=== PATIENT | male | born 1940 | race Caucasian/White ===

== ENCOUNTER 2018-04-25 15:25 | Outpatient (CLI) | payer MEDICARE, BC ==
--- NOTE | 2018-04-25 16:27 | RAD ---
LUMBAR SPINE THREE VIEWS FLEXION AND EXTENSION: 04/25/18 HISTORY: Back pain. FINDINGS: Frontal view is not included for numbering. Lateral views include neutral, flexion and extension posi tioning. Five lumbar type vertebrae are presumed. Minimal end plate depression at the T12 inferior end plate. This appears to represent a chronic proc ess. Prominent osteophytosis. Disc space phenomenon at the lowest four levels. At the L2-3 level, there is 0.4 cm retrolisthesis. At the L3-4 level, there is disc space narrowing and 0.3 cm retrolisthesis. At the L4-5 level, there is mild disc space narrowing and 0.3 cm retrolisthesis. Little movement up o n flexion and extension without abnormal translational motion. IMPRESSION: Prominent degenerative changes of the lumbar spine. No acute osseous abnormalities are demonstrated. POS: [facility]
== END 2018-04-25 15:26 | disposition home or self-care (01) ==
LOC: TBSIIMAG 15:25
PROVIDERS: ATTEND Neurological Surgery
DX: M51.26 Other intervertebral disc displacement, lumbar region (principal); M48.062 Spinal stenosis, lumbar region with neurogenic claudication
CPT/HCPCS: 72100

== ENCOUNTER 2018-05-16 12:07 | Outpatient (CLI) | payer MEDICARE, BC ==
--- NOTE | 2018-05-16 14:59 | MRI ---
MRI OF THE LUMBAR SPINE WITHOUT CONTRAST: INDICATION: Low back pain and right-sided radicular symptoms. TECHNIQUE: Multiplanar, multisequence MR images were obtained of the lumbar spine without IV contrast. FINDINGS: There are Modic end plate degenerative changes seen at all lumbar intervertebral levels. Conus is seen to terminate at expected L1 level. There is slight dextroscoliosis of the lumbar spine. At L5-S1, there is a broad-based disk bulge with facet joint degenerative change inducing mild bilate ral neural foraminal narrowing. At L4-5, there is a broad-based disk-osteophyte complex with facet hypertrophy and ligamentum flavum hypertrophy inducing mild central canal narrowing with mild to moderate bilateral neural foraminal na rrowing. At L3-4, there is a broad-based disk-osteophyte complex with facet joint degenerative changes and lig amentum flavum hypertrophy inducing severe central canal narrowing with severe left and moderate righ t neural foraminal narrowing. At L2-3, there is a broad-based disk-osteophyte complex with facet joint degenerative change inducing moderate central canal narrowing with mild bilateral neural foraminal narrowing. At the L1-2 level, there is a broad-based bulge without appreciable central canal or neural foraminal narrowing. At T12-L1, there is an asymmetric disk-osteophyte complex but no appreciable central canal or neural foraminal narrowing. IMPRESSION: 1. Severe central canal narrowing at L3-4 with severe left neural foraminal narrowing. 2. Moderate central canal narrowing at L2-3 with mild bilateral neural foraminal narrowing. 3. Mild to moderate bilateral neural foraminal narrowing at L4-5. 4. Mild bilateral neural foraminal narrowing at L5-S1. POS: [facility]
== END 2018-05-16 12:08 | disposition home or self-care (01) ==
LOC: BICMRI 12:07
PROVIDERS: ATTEND Neurological Surgery
DX: M48.062 Spinal stenosis, lumbar region with neurogenic claudication (principal); M48.07 Spinal stenosis, lumbosacral region
CPT/HCPCS: 72148

== ENCOUNTER 2018-05-30 07:28 | Outpatient (CLI) | payer MEDICARE, BC ==
[2018-05-30 15:10] LABS: Hemoglobin 16.1 g/dL (14.0-18.0); Mean Corpuscular HGB CONC 32.8 g/dL (32.0-36.0); Mean Corpuscular Hemoglobin 30.7 pg (27.0-31.0); Mean Corpuscular Volume 93.7 fL (78.0-98.0); Mean Platelet Volume 8.5 fL (7.4-10.4); Platelet Count 238 thou/uL (130-400); RBC Distribution Width 11.9 % (11.5-14.5); Red Blood Cell (RBC) Count 5.24 mill/uL (4.70-6.10); White Blood Cell (WBC) Count 5.8 thou/uL (4.8-10.8)
[2018-05-30 15:16] LABS: PTT 29.8 SEC (22.9-36.1); Prothrombin Time 12.9 SEC (12.0-14.7)
== END 2018-05-30 07:29 | disposition home or self-care (01) ==
LOC: LABBT 07:28
PROVIDERS: ATTEND Neurological Surgery
DX: Z01.812 Encounter for preprocedural laboratory examination (principal); M48.061 Spinal stenosis, lumbar region without neurogenic claudication
CPT/HCPCS: 85027; 85610; 85730

== ENCOUNTER 2018-05-31 05:37 | Inpatient (IN) | payer MEDICARE, BC ==
--- NOTE | 2018-05-29 15:06 | HP ---
HISTORY OF PRESENT ILLNESS: This is a 78-year-old male, who reports to our office, looks younger than stated age, and he is here for evaluation of lumbar back pain. The patient states that he has pain in his low back for years. He has been a very active man, and over time, he has gradually been unable to do activities. He was hoping that his shelter would allow him to do much more running and now he can barely walk a mile. He states that he cannot stand for any more than 5 minutes without needing to lean on something or bend over and sit down. The patient states that he needs a shopping cart to lean on during long walks in the grocery store. The patient states that he has been in and out physical therapy for some time now without much benefit. He goes and gets massages and has seen Dr. Mcclani for injections, which used to work, but now only lasts for a week or so. REVIEW OF SYSTEMS: A 10-point review of systems has been completed and is negative other than stated in the above HPI. PAST MEDICAL HISTORY: Arthritis, prostate cancer, and chronic pain. PAST SURGICAL HISTORY: Prostatectomy. FAMILY HISTORY: Father is . Mother is . SOCIAL HISTORY: The patient is a nonsmoker. Drinks alcohol. Does not use any other illicit drugs. MEDICATIONS: Cimetidine and Tylenol. ALLERGIES: NO KNOWN DRUG ALLERGIES. PHYSICAL EXAMINATION: CONSTITUTIONAL: Well appearing, well nourished, alert. NEUROLOGIC: Mental status; oriented to time, place, and person. Normal attention span and concentration. Speech is spontaneous and fluent. Comprehension is intact, content appropriate. Normal fund of knowledge. Cranial nerves; pupils are equal, round, and reactive to light. Extraocular movements are intact. Hearing is intact. Motor; muscle strength normal in lower extremities. Muscle tone and bulk normal in lower extremities. 5/5 bilateral strength in IP, KE, KF, DF, PF, EHL. No radiculopathy. Negative single leg raise bilaterally. Rotation of bilateral hips normal. Tender to palpate at the right greater trochanteric bursa. Deep tendon reflexes, brisk reflexes. Positive clonus . Sensory, light touch intact. Gait and station; sit to standing slow. Normal gait with forward flexion. RESPIRATORY: Respirations, normal work of breathing on room air. SKIN: No rashes or lesions noted on exposed skin. PSYCH: Normal mood and affect. IMAGING STUDIES: MRI of the lumbar spine shows central stenosis at L2-L3, L3-4, and L4-5, with the most severe stenosis being at L3-4. ASSESSMENT AND PLAN: Lumbar stenosis with neurogenic claudication. Dr. Prakash has offered a laminectomy, L2 through L5. The patient states that he understands the risks and is willing to proceed with surgery. Job ID: [id number]
[2018-05-31] MEDS ORDERED: Fentanyl 250 MCG/5 ML VIAL ONE (06:02)
[2018-05-31] MEDS ORDERED: Thrombin 5000 UNITS/5 ML VIAL ONE (06:16)
[2018-05-31] MEDS ORDERED: Sodium Chloride 0.9% 10 ML ONE (06:16)
[2018-05-31] MEDS ORDERED: Bupivacaine HCl 0.5%/Epinephrine 1:200,000/PF 30 ml Vial ONE (06:16)
[2018-05-31] MEDS ORDERED: Acetaminophen 650 MG Suppository PR PRN (10:02)
[2018-05-31] MEDS ORDERED: Promethazine 25 MG TAB PO PRN (10:02)
[2018-05-31] MEDS ORDERED: diphenhydrAMINE 25 MG CAP PO PRN (10:02)
[2018-05-31] MEDS ORDERED: Milk Of Magnesia 30 ML UDCUP PO PRN (10:02)
[2018-05-31] MEDS ORDERED: Ondansetron PF 4 MG/2 ML Vial IVP PRN (10:02)
[2018-05-31] MEDS ORDERED: Bisacodyl 10 MG SUPP PR PRN (10:02)
[2018-05-31] MEDS ORDERED: Acetaminophen/Codeine 30-300mg Tablet PO PRN ×2 (10:02)
[2018-05-31] MEDS ORDERED: Mag-Al 1200 mg/1200 mg/30 ML UDCUP PO PRN (10:02)
[2018-05-31] MEDS ORDERED: Promethazine HCl 25 MG/ML VIAL IM PRN (10:02)
[2018-05-31] MEDS ORDERED: diphenhydrAMINE 50 MG/ML VIAL IVP PRN (10:02)
[2018-05-31] MEDS ORDERED: Acetaminophen 325 MG TAB PO PRN (10:02)
[2018-05-31] MEDS ORDERED: Morphine 4 MG/ML VIAL SLOW IVP PRN ×2 (10:02)
[2018-05-31] MEDS ORDERED: traMADol HCl 50 MG TAB PO PRN ×2 (10:02)
[2018-05-31] MEDS ORDERED: tiZANidine HCl 4 MG TAB PO PRN (10:02)
[2018-05-31] MEDS ORDERED: Fentanyl 100 MCG/2 ML VIAL ONE (10:34)
--- NOTE | 2018-05-31 10:41 | OP ---
DATE OF PROCEDURE: 05/31/2018 PATROL SERGEANT: Hue Ribera PA-C. PREOPERATIVE INDICATION: Treat pain and prevent neurological deterioration. PREOPERATIVE DIAGNOSIS: Multilevel lumbar stenosis with severe neurogenic claudication. POSTOPERATIVE DIAGNOSIS: Multilevel lumbar stenosis with severe neurogenic claudication. PROCEDURE PERFORMED: Decompressive laminectomy, medial facetectomy, and foraminotomy at L2-L3, L3-L4, and L4-L5. PREOPERATIVE MEDICATION: Ancef 2 g IV. DRAIN NUMBER: Zero. DRAIN TYPE: None. DESCRIPTION OF PROCEDURE: The patient was brought to the operating room. General endotracheal anesthesia was induced. The patient was positioned prone on the operating table with his chest and hips supported by gel-filled chest rolls. A lateral fluoro radiograph was used to plan our incision. The lumbar skin was sterilely prepped and draped. We opened with a 10 blade knife and controlled bleeding with bipolar and monopolar cautery. We used monopolar cautery to dissect through subcutaneous tissues to the thoracodorsal fascia. We incised the fascia in the midline and we reflected the paraspinal muscles off the spinous process and laminae of L2, L3, L4, and the top of L5. A self-retaining retractor was placed and a lateral fluoro radiograph was used to confirm the levels upon which were operating. We then used an Adson rongeur to remove the inferior portion the spinous process of L2, all of L3, all of L4 and the top of L5. I used a high-speed drill to thin the lamina at L3 and L4 and the top of L5 and using Kerrison rongeurs, we fashioned a laminectomy down the midline. We widened our laminectomy defect. As we approached the lateral recess, we used Kerrison rongeurs to perform medial facetectomies and remove osteophytes in the lateral recess to ensure that each neural element could pass over the interspace and out the foramen without impingement. We used a Chandler ball probe to ensure that each of the foramina were opened from the L2 nerve root foramen all the way to the L5 nerve root foramina on both sides. At the completion of our decompression, there was no more impingement of the thecal sac or any of the nerve roots. We irrigated copiously with bacitracin irrigation. We waxed the bone edges. We controlled epidural bleeding with gentle bipolar cautery. We infused local anesthetic in the paraspinal muscles and we closed the wound in anatomical layers. We applied a sterile dressing. This was a clean case, no contamination. Job ID: [id number]
[2018-05-31] MEDS: Sodium Chloride 0.9% 1,000 ML IV SCH (13:17)
[2018-05-31] MEDS: CEFAZOLIN 2 GM in Premix Bag 1 BAG IVPB SCH ×2 (13:49→21:11)
[2018-05-31 14:14] VITALS: BMI 28.1
[2018-05-31] MEDS ORDERED: Ondansetron PF 4 MG/2 ML Vial ONE (15:46)
[2018-05-31] MEDS ORDERED: PROPOFOL 200 MG/20 ML VIAL ONE (15:46)
[2018-05-31] MEDS ORDERED: Rocuronium Bromide 10 MG/ML (10ML VIAL) ONE (15:46)
[2018-05-31] MEDS ORDERED: Dexamethasone 20 MG/5 ML VIAL ONE (15:46)
[2018-05-31] MEDS ORDERED: Lidocaine 1% PF 5 ML VIAL ONE (15:46)
[2018-05-31] MEDS ORDERED: ePHEDrine 50 MG/ML VIAL ONE (15:46)
[2018-05-31] MEDS ORDERED: PHENYLEPHRINE-NS 100 MCG/ML 10 ML SYRINGE ONE (15:46)
[2018-05-31] MEDS ORDERED: Glycopyrrolate 0.2 MG/ML 5 ML SYRINGE ONE (15:46)
--- NOTE | 2018-05-31 15:50 | CON ---
DATE OF CONSULTATION: 05/31/2018 CONSULTING PHYSICIAN: Lillie Prakash MD, Neurosurgery. PURPOSE OF CONSULTATION: Medical management. HISTORY OF PRESENT ILLNESS: The patient is a 78-year-old male, who was admitted to the hospital for elective laminectomy on his lumbar spine. Apparently, he has a long-standing history of back pain and Dr. Prakash offered him to have laminectomy done after he had MRI of the spine showing stenosis of L2-L3, L3-L4, and L4-L5 with most severe stenosis being at L3-L4 and the patient underwent surgery today which is May. He does not have much pain during my visit. He has some back discomfort. He describes his primary care physician is Dr. Asif Samayoa from [facility]. His , Shreya Borjas, is surrogate decision maker. PAST MEDICAL HISTORY: Positive for: 1. Arthritis. 2. Prostate cancer. 3. Chronic back pain. PAST SURGICAL HISTORY: Prostatectomy. FAMILY HISTORY: Father of TB at the age of 53. Mother was 93 when she passed from old age. SOCIAL HISTORY: He is nonsmoker. He drinks alcohol daily, one glass of red wine usually or beer occasionally. He does not use any illicit drugs. MEDICATIONS: 1. P.r.n. cimetidine. 2. Tylenol. ALLERGIES: NONE. REVIEW OF SYSTEMS: All 14 systems were reviewed and were negative except for those symptoms mentioned in the HPI. PHYSICAL EXAMINATION: VITAL SIGNS: Blood pressure is 114/68, pulse is 59, respiratory rate is 16, O2 saturation is 94% on room air, temperature is 97.6. HEENT: His head is atraumatic and normocephalic. Eyes are PERRLA. Sclerae are nonicteric. Oral mucosa is moist. NECK: Supple. No lymphadenopathy. Thyroid is not palpable. LUNGS: Clear. HEART: S1, S2 normal. No S3. No S4. No any murmur. ABDOMEN: Soft and nontender. Bowel sounds are present. No organomegaly. EXTREMITIES: No clubbing, cyanosis, or edema. NEUROLOGICAL: Revealed normal reflexes in the lower extremities. Normal strength. Some decreased sensation over both toes. He follows my commands. Cranial nerves are intact. SKIN: No rash or erythema. He has dressing in the lumbar spine area. LABORATORY DATA: WBCs 5.8, hemoglobin 16.1, hematocrit 49.1, platelet count is 238,000. This was obtained on the , which is yesterday. His INR was 1.0 and PT was 12.9. EKG reading is sinus rhythm with first-degree AV block with a left axis deviation, but actual EKG is not on the chart. IMPRESSION: Spinal stenosis, status post laminectomy of the lumbar spine, medial facetectomy and foraminotomy at L2-L3, L3-L4, and L4-L5. Also, the patient has some history of hiatal hernia and he gets some help of using H2 ramón. RECOMMENDATIONS: I agree with current regimen with pain management with IV fluids with antibiotic per protocol and also he will use cimetidine p.r.n. for his GI discomfort. We will also recommend to do pharmacological prophylaxis for DVT prophylaxis and continue mechanical prophylaxis for SCDs. Thank you very much for consultation and we will follow up with you. Job ID: [id number]
[2018-05-31] MEDS: Famotidine 20 MG TAB PO SCH (21:01)
[2018-06-01] MEDS: Sodium Chloride 0.9% 1,000 ML IV SCH (00:30)
[2018-06-01] MEDS ORDERED: Tamsulosin HCl 0.4 MG CAP PO SCH (06:00)
[2018-06-01] MEDS ORDERED: Cepastat Lozenges 1 LOZ PO PRN (07:50)
[2018-06-01] MEDS ORDERED: Benzonatate 100 MG CAP PO SCH (08:15)
[2018-06-01 08:17] VITALS: BP 119/70; TEMP 97.2
[2018-06-01] MEDS: Famotidine 20 MG TAB PO SCH (08:28)
== END 2018-06-01 11:51 | disposition home or self-care (01) | DRG 517 ==
LOC: SDC 05:37 → OBSVTOIN 10:02 → SJJU 10:02
PROVIDERS: ADMIT Neurological Surgery; ATTEND Neurological Surgery
PROC: 01NB0ZZ Release Lumbar Nerve, Open Approach (ICD-10-PCS; principal; 2018-05-31)
DX: M48.062 Spinal stenosis, lumbar region with neurogenic claudication (principal); G89.29 Other chronic pain; M19.90 Unspecified osteoarthritis, unspecified site; K44.9 Diaphragmatic hernia without obstruction or gangrene; Z85.46 Personal history of malignant neoplasm of prostate; Z90.79 Acquired absence of other genital organ(s)
CPT/HCPCS: 76000; 85027; 85610; 85730; J0670; J3010; J3370; J3490

== ENCOUNTER 2018-12-11 19:34 | Inpatient (IN) | payer MEDICARE, BC ==
--- NOTE | 2018-12-11 20:41 | RAD ---
Chest one view HISTORY: Chest pain. Bradycardia. FINDINGS: Cardiac silhouette is magnified by projection. Pulmonary vasculature is unremarkable. Media stinum is midline. No confluent airspace consolidation or evidence of pneumothorax. . IMPRESSION: No active cardiopulmonary abnormalities are demonstrated.
[2018-12-11 21:16] LABS: #Eosinphils 0.1 thou/uL (0.0-0.7); #Lymphocytes 1.3 thou/uL (1.20-3.40); #Monocytes 0.5 thou/uL (0.11-0.59); #Neutrophils 2.9 thou/uL (1.40-6.50); %Basophils 0.8 % (0.0-1.0); %Eosinophils 1.9 % (0.0-10.0); %Lymphocytes 27.3 % (21.0-51.0); %Monocytes 10.5 % (0.0-10.0); %Neutrophils 59.6 % (42.0-75.0); Hemoglobin 14.6 g/dL (14.0-18.0); Mean Corpuscular HGB CONC 33.6 g/dL (32.0-36.0); Mean Corpuscular Hemoglobin 30.7 pg (27.0-31.0); Mean Corpuscular Volume 91.6 fL (78.0-98.0); Mean Platelet Volume 8.9 fL (7.4-10.4); Platelet Count 201 thou/uL (130-400); RBC Distribution Width 11.9 % (11.5-14.5); Red Blood Cell (RBC) Count 4.76 mill/uL (4.70-6.10); White Blood Cell (WBC) Count 4.8 thou/uL (4.8-10.8)
[2018-12-11 21:35] LABS: ALT (SGPT) 16 U/L (8-55); AST (SGOT) 16 U/L (5-34); Alkaline Phosphatase 64 U/L (40-150); Anion Gap 9 mmol/L (10-20); BUN (Urea Nitrogen) 20 mg/dL (8.4-25.7); Bilirubin, Total 0.4 mg/dL (0.2-1.2); Calc. Creatinine Clearance 0 mL/min (70-130); Calcium 9.2 mg/dL (7.8-10.44); Carbon Dioxide 29 mmol/L (23-31); Chloride 105 mmol/L (98-107); Estimated GFR-MDRD Greater than 90; Globulin 2.2 g/dL (2.4-3.5); Glucose 87 mg/dL (83-110); Potassium 3.7 mmol/L (3.5-5.1); Protein, Total 6.2 g/dL (5.8-8.1); Sodium 139 mmol/L (136-145)
[2018-12-11] MEDS ORDERED: Atropine Sulfate 1 mg/10 ml Syringe ONE (22:27)
[2018-12-11] MEDS ORDERED: Magnesium 2 GM/50 ML BAG (IN WATER) ONE (22:31)
[2018-12-11] MEDS ORDERED: Aspirin Chewable 81 MG TAB ONE (23:45)
[2018-12-12] MEDS ORDERED: Acetaminophen 650 MG Suppository PR PRN (02:56)
[2018-12-12] MEDS ORDERED: Ondansetron PF 4 MG/2 ML Vial IVP PRN (02:56)
[2018-12-12] MEDS ORDERED: Acetaminophen 325 MG TAB PO PRN (02:56)
[2018-12-12] MEDS ORDERED: Ondansetron ODT 4 MG TAB PO PRN (02:56)
[2018-12-12] MEDS ORDERED: Atropine Sulfate 1 mg/1 ml Vial IVP PRN (02:58)
[2018-12-12 05:23] LABS: #Eosinphils 0.1 thou/uL (0.0-0.7); #Monocytes 0.6 thou/uL (0.11-0.59); #Neutrophils 5.1 thou/uL (1.40-6.50); %Basophils 0.6 % (0.0-1.0); %Lymphocytes 25.9 % (21.0-51.0); %Monocytes 7.6 % (0.0-10.0); %Neutrophils 64.8 % (42.0-75.0); Hemoglobin 15.7 g/dL (14.0-18.0); Mean Corpuscular HGB CONC 33.9 g/dL (32.0-36.0); Mean Corpuscular Hemoglobin 30.6 pg (27.0-31.0); Mean Corpuscular Volume 90.5 fL (78.0-98.0); Mean Platelet Volume 8.8 fL (7.4-10.4); Platelet Count 210 thou/uL (130-400); Red Blood Cell (RBC) Count 5.12 mill/uL (4.70-6.10); White Blood Cell (WBC) Count 7.9 thou/uL (4.8-10.8)
[2018-12-12 05:42] LABS: Anion Gap 12 mmol/L (10-20); BUN (Urea Nitrogen) 18 mg/dL (8.4-25.7); Calc. Creatinine Clearance 99 mL/min (70-130); Calcium 9.3 mg/dL (7.8-10.44); Carbon Dioxide 25 mmol/L (23-31); Chloride 106 mmol/L (98-107); Estimated GFR-MDRD Greater than 90; Glucose 82 mg/dL (83-110); Potassium 3.8 mmol/L (3.5-5.1); Sodium 139 mmol/L (136-145)
[2018-12-12 05:49] LABS: Troponin I 0.021 ng/mL (< 0.028)
--- NOTE | 2018-12-12 05:55 | HP ---
PRIMARY CARE DOCTOR FOR THIS PATIENT: Dr. Asif Samayoa. CODE STATUS FOR THIS PATIENT: Full code. TIME OF EVALUATION: 11:45 p.m. CHIEF COMPLAINT FOR THIS PATIENT: Low heart rate. HISTORY OF PRESENT ILLNESS: This is a 78-year-old male patient with past medical history of hyperlipidemia, positive stress test, scheduled for cardiac cath next week. The patient came to the hospital after having symptomatic bradycardia. The patient has some dizziness and feeling lightheaded. No clear triggers. No alleviating factors. The blood pressure was in the high side at the point. The symptoms were mild. He was found to have heart rate in the 30s. He was given atropine in the ER with improvement of the heart rate and symptoms. Dr. Gifford has been consulted, who will see the patient. We will place the patient in IMCU. We will monitor him with atropine at bedside. If symptoms do not improve or get worse, we might put him on dopamine. REVIEW OF SYSTEMS: All other systems were reviewed and negative except for the findings as mentioned above. PAST MEDICAL HISTORY: As mentioned in the HPI. PAST SURGICAL HISTORY: Spinal stenosis surgery in May 2018. PSYCHIATRIC HISTORY: No previous psych history. SOCIAL HISTORY: The patient drinks socially rarely. No drug use. No smoking history. FAMILY HISTORY: Reviewed, noncontributory to current presentation. KNOWN ALLERGIES: No known drug allergies. REPORTED MEDICATIONS: 1. Aspirin. 2. Crestor. 3. Isosorbide mononitrate. PHYSICAL EXAMINATION: VITAL SIGNS: On presentation, blood pressure of 183/90 with heart rate of 50, respiratory rate of 18, temperature of 98.3, pain of 0/10, oxygen saturation of 98% on room air. GENERAL APPEARANCE: The patient is alert, oriented, not in acute distress. HEENT: Eyes, normal. ENT, moist oral mucosa. Anicteric. No JVD. RESPIRATORY: Bilateral air entry. No rales. No wheezes. Symmetric expansion. CARDIOVASCULAR: The patient is bradycardic, regular rhythm. No murmurs. No gallop. No edema. ABDOMEN: Soft. Normal bowel sounds. MUSCULOSKELETAL: Baseline range of motion and strength. SKIN: Warm and intact. No pallor. No rash. No redness. Capillary refill seems to be intact. NEUROLOGIC: No evidence of any new focal weakness. Cranial nerves seems to be intact. PSYCHIATRIC: The patient is in good mood. No anxiety. Optimal judgment. IMAGING: EKG was done, shows sinus bradycardia at the rate of 33. Repeat EKG showed sinus bradycardia at the rate of 46 with first-degree AV block, QRS 126, QT corrected 376. The patient also developed some torsades and the patient was given magnesium 2 g during that episode. LABORATORY DATA: Reviewed. The patient has normal CBC. The patient has normal BMP. Troponin was negative. Kidney function was negative. ASSESSMENT AND PLAN: The patient will be placed in the hospital with following medical problems. 1. Symptomatic bradycardia. The patient with heart rate in the 30s, improved with atropine. We will keep him on atropine at bedside for any further episodes. If not improving or needs more doses, we may need to put the patient on dopamine. Dr. Gifford is being called and we will follow recommendations from her part. This could be due to underlying ischemia. The patient has had a recent positive stress test and had a planned cardiac cath scheduled for the next week; however, due to symptoms, the patient might benefit from getting a cardiac cath. 2. History of hyperlipidemia. Low-cholesterol diet is advised. Reconcile home medications. 3. Deep venous thrombosis prophylaxis. Job ID: [id number]
[2018-12-12 08:11] LABS: Troponin I Less than 0.010 ng/mL (< 0.028)
[2018-12-12] MEDS: Enoxaparin Sodium 40 MG/0.4 ML SYRINGE SC SCH (08:56)
[2018-12-12] MEDS ORDERED: Heparin 10,000 UNITS/1 ML VIAL ONE (09:52)
[2018-12-12] MEDS ORDERED: Lidocaine 1% (PF) 30 ML VIAL ONE (09:52)
[2018-12-12] MEDS ORDERED: Nitroglycerin 100MG/250ML BOT 250 ML ONE (09:52)
[2018-12-12] MEDS ORDERED: Verapamil 5 MG/2 ML VIAL ONE (09:52)
[2018-12-12] MEDS ORDERED: CEFAZOLIN 1 GM VIAL ONE (11:02)
[2018-12-12] MEDS ORDERED: Midazolam HCl 2 mg/2 ml Vial ONE (12:35)
--- NOTE | 2018-12-12 13:00 | CON ---
DATE OF CONSULTATION: 12/12/2018 INDICATION FOR CONSULTATION: A 78-year-old patient with symptomatic bradycardia. Also history of possible coronary artery disease. 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 He has been doing quite well as far as activity is concerned, but he noticed yesterday when he was sitting on the sofa, his heart rate was in the 40s when he looked at his Fitbit. He also has had heart rates down the 30s. When he exercises or walks, the heart rate does go into the 50s and 60s and he has been relatively asymptomatic with the bradycardia. He presented to the emergency room after he had also noticed a slow heart rate. He had recently been told he had a positive stress test at [facility]. He was advised to undergo cardiac catheterization, it was scheduled for next week, but I believe he is somewhat nervous knowing that he needed to have a cardiac catheterization and had bradycardia, then he noticed he felt may perhaps somewhat dizzy and lightheaded , and he presented to the emergency room here. While in the emergency room, he did have heart rates that dipped down into the 30s. He was given atropine with improvement in the heart rate and symptoms. At this time, he is very comfortable. He is still in the intensive care unit. Heart rate at time is in the 40s, but I have not seen any heart rates in the 30s. His vital signs otherwise have remained stable. He denies any chest pain. PAST MEDICAL HISTORY: Noted for the above bradycardia, which is noted. He has had no other significant past medical history. He has been a pretty healthy gentleman. He does have spinal stenosis surgery in 2019. SOCIAL HISTORY: He has no tobacco abuse. He has no illicit drug use. He drinks only occasionally. He lives with his . FAMILY HISTORY: Noncontributory except he does have one brother, who had coronary artery disease, who has undergone stent placement. ALLERGIES: NONE. MEDICATIONS: Include, 1. Crestor. 2. Aspirin. 3. Isosorbide mononitrate. PHYSICAL EXAMINATION: GENERAL: Reveals a well-developed, well-nourished, very pleasant gentleman. VITAL SIGNS: Blood pressure is 140/83, heart rate is 49, respiratory rate is 20 , and O2 saturation 96%. HEENT: Shows the head to be normocephalic and atraumatic. Carotid pulses are present. There were no bruits. No JVD. The thyroid did not appear to be enlarged. Oral mucosa is pink and moist. CHEST: Clear to auscultation without rales, rhonchi, or wheezing. CARDIOVASCULAR: Reveals bradycardia with regular rhythm. No significant murmurs, heaves, thrills, bruits, or rubs are noted. ABDOMEN: Soft and nontender. Positive bowel sounds are present. No organomegaly or masses were noted. MUSCULOSKELETAL: He has normal pulses, normal strength, normal tone. SKIN: Warm and dry. No lesions were noted. NEUROLOGIC: The patient appears to be without any focal motor deficits. His psychosocial or psychiatric evaluation is also unremarkable. He has normal sensation. Normal mood. No anxiety is noted. DIAGNOSTIC DATA: EKG shows a sinus bradycardia with heart rates in the 30s. He has first-degree AV heart block. LABORATORY DATA: Shows a hemoglobin 15.7, hematocrit 46.3, platelet count was 210,000, WBC 7.9. Sodium is 139, potassium 3.9, BUN 18, creatinine 0.75, blood sugar is 82. Cardiac enzymes are negative. His BNP was 60.5. IMPRESSION: Elderly gentleman with abnormal stress test, had a planned cardiac catheterization for next week, who has developed more significant bradycardia, which may be related to underlying coronary artery disease. I have suggested he undergo cardiac catheterization if he has significant coronary artery disease, especially involving the right coronary artery, this may be for the etiology of the bradycardia and this will need to be alleviated. I have explained the procedure and risks to him to proceed with cardiac catheterization, which include bleeding, infection, possibly myocardial infarction, CVA, renal insufficiency, allergic contrast reaction, and the possibility of and he agrees to proceed. We will plan for cardiac catheterization today. If he has normal coronary arteries, given his heart rates in the 30s and 40s, then I would suggest he undergo a pacemaker insertion due to sinus node dysfunction or sick sinus syndrome with bradycardia. I have explained the procedure and the risks to him also to include bleeding, infection, possibility of pneumothorax, hemothorax, and pericardial tamponade. He understands and agrees to proceed. We will plan for a cardiac catheterization later today. We will also try to obtain the stress test results from [facility]. ADDENDUM: Please note on the EKG, the patient does have a first-degree AV heart block and also has a left anterior fascicular block with occasional PVC. Job ID: [id number] [facility]TDD
[2018-12-12] MEDS ORDERED: Acetaminophen/Codeine 30-300mg Tablet PO PRN ×2 (13:44)
[2018-12-12] MEDS ORDERED: Nitroglycerin 0.4 MG TAB (25 Tab Bottle) SL PRN (13:44)
[2018-12-12] MEDS ORDERED: Sodium Chloride 0.9% 200 ML IV PRN (13:44)
[2018-12-12] MEDS ORDERED: hydrALAZINE 20 MG/ML VIAL SLOW IVP PRN (16:07)
[2018-12-12] MEDS ORDERED: Calcium Carbonate 500 MG ChewTAB PO PRN (16:17)
[2018-12-12] MEDS ORDERED: Isosorbide Mononitrate (ER) 30 MG TAB PO SCH (16:30)
[2018-12-12] MEDS ORDERED: Iopamidol 370 76% 100 ML VIAL ONE (17:05)
[2018-12-12] MEDS: Famotidine 20 MG TAB PO SCH (20:23)
[2018-12-12] MEDS: Rosuvastatin 20 MG TAB PO SCH (20:23)
--- NOTE | 2018-12-13 02:24 | CON ---
DATE OF CONSULTATION: This is a 78-year-old gentleman, who underwent stress testing a couple of weeks ago. I believe it has gotten wide and was told it was abnormal, but did not follow up. He has noticed bradycardia and feeling fatigued and weak on occasion. He presented to the emergency room with a heart rate in the 30s and was admitted and underwent cardiac catheterization today showing three-vessel coronary artery disease. PAST MEDICAL HISTORY: Positive for borderline hypertension and borderline elevated cholesterol level. He has no history of diabetes mellitus, is a nonsmoker. Drinks socially and rarely. He is . He works out in [employer], treadmill, and exercise bicycle regularly. HOME MEDICATIONS: Include aspirin 81 mg a day; Crestor 20 mg a day, started just recently; and isosorbide 30 mg half tablet a day. ALLERGIES: HE HAS NO KNOWN ALLERGIES. PHYSICAL EXAMINATION: VITAL SIGNS: His heart rate is 50, sinus rhythm. NECK: No carotid bruits. LUNGS: Clear to auscultation. CARDIAC: Regular rate and rhythm. No murmurs. ABDOMEN: Full, soft, nontender. No aneurysm. EXTREMITIES: He has palpable posterior tibial pulses bilaterally. He has superficial varicosities of both lower extremities with no peripheral edema. He has good radial pulse in his nondominant left arm after a cardiac catheterization and his right radial. He has a good Damien's test on his left. Cardiac catheterization reveals multi-vessel disease with potential targets of an LAD diagonal, obtuse marginal, right PDA, and possibly distal circ. PLAN: Surgical intervention tomorrow and informed consent has been obtained. Job ID: [id number]
--- NOTE | 2018-12-13 03:00 | CON ---
DATE OF CONSULTATION: 12/12/2018 HISTORY OF PRESENT ILLNESS: Mr. 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 He is a very fascinating gentleman. He presented with bradycardia that he noted on a Fitbit watch that his heart rate was in the 30s. He subsequently has been admitted. I saw him this morning, he is tentatively going for cardiac catheterization, but subsequent catheterization has shown, I am told, significant coronary artery disease. He has been an aggressive athlete, running marathons and doing ironmans for many years. He has had no chest pain. PAST MEDICAL HISTORY: Remarkable for spinal stenosis surgery early this year. SOCIAL HISTORY: He is a nonsmoker and nondrinker. ALLERGIES: HE HAS NO REPORTED DRUG ALLERGIES. FAMILY HISTORY: Negative for lung disease in early age. REVIEW OF SYSTEMS: 10 point review of systems completed, otherwise negative. MEDICATIONS: Prior to admission, he is on aspirin, Crestor, and Ismo. PHYSICAL EXAMINATION: GENERAL: He is in no distress, very pleasant, cooperative, fascinating gentleman to talk to. VITAL SIGNS: His blood pressure 122/83 this evening, heart rates in the 50s when I saw him, oximetry is 94% on room air, respiratory rates in the teens. HEAD: Unremarkable. NECK: Unremarkable. LUNGS: Clear. HEART: Regular rhythm. No S3. ABDOMEN: Soft and nontender. EXTREMITIES: Without clubbing, cyanosis, or edema. LABORATORY DATA: White count 7.9, hemoglobin 15.7, and platelets 210. Electrolytes are normal. Creatinine is normal. IMPRESSION: 1. Coronary artery disease. 2. Bradycardia. 3. Long history of physical fitness and aggressive athletic endeavors being a chronic marathon runner and ironman runner. Overall, he is stable. We will follow while he is in the hospital. This is a 70 minute consult, with greater than 50% of time spent on unit coordinating care. Job ID: [id number]
[2018-12-13] MEDS ORDERED: Albumin 5% 500 ML ONE (06:35)
[2018-12-13 06:36] LABS: Anion Gap 14 mmol/L (10-20); BUN (Urea Nitrogen) 19 mg/dL (8.4-25.7); Calc. Creatinine Clearance 99 mL/min (70-130); Calcium 9.2 mg/dL (7.8-10.44); Carbon Dioxide 23 mmol/L (23-31); Cardiac Risk 2.4 (Less than 4.5); Chloride 107 mmol/L (98-107); Cholesterol 121 mg/dl (< 200 Desired); Estimated GFR-MDRD Greater than 90; Glucose 92 mg/dL (83-110); HDL Cholesterol 50 mg/dL (>60 Neg Risk); LDL Cholesterol, Calculated 52 mg/dL; Magnesium 2.2 mg/dL (1.6-2.6); Potassium 3.7 mmol/L (3.5-5.1); Sodium 140 mmol/L (136-145); Triglycerides 93 mg/dL (Less than 150)
[2018-12-13] MEDS ORDERED: Fentanyl 250 MCG/5 ML VIAL ONE (06:52)
[2018-12-13] MEDS ORDERED: Vecuronium 10 MG VIAL ONE ×2 (06:52→13:21)
[2018-12-13] MEDS ORDERED: Dexmedetomidine 200 MCG/2 ML VIAL ONE (06:52)
[2018-12-13] MEDS ORDERED: Midazolam HCl 5 mg/5 ml Vial ONE (06:52)
[2018-12-13] MEDS: Enoxaparin Sodium 40 MG/0.4 ML SYRINGE SC SCH (07:38)
[2018-12-13] MEDS: Famotidine 20 MG TAB PO SCH ×2 (07:41→21:12)
[2018-12-13] MEDS ORDERED: Heparin 10,000 UNITS/1 ML VIAL 30,000 UNITS in Sodium Chloride 0.9% 1,000 ML FS SCH (07:45)
[2018-12-13] MEDS ORDERED: Isosorbide Mononitrate (ER) 30 MG TAB PO SCH (09:00)
[2018-12-13] MEDS ORDERED: Aspirin 325 mg Enteric Coated Tablet PO SCH (09:00)
[2018-12-13] MEDS ORDERED: Norepinephrine 8 MG/0.9% NS 250 ML IVPB PRN ×2 (12:47→16:30)
[2018-12-13] MEDS ORDERED: Nitroglycerin 50 MG/250 ML BOT 250 ML IVPB PRN (12:47)
[2018-12-13] MEDS ORDERED: Fentanyl 100 MCG/2 ML VIAL SLOW IVP PRN ×2 (12:47)
[2018-12-13] MEDS ORDERED: Hetastarch 6% 500 ML 500 ML IVPB PRN (12:47)
[2018-12-13] MEDS ORDERED: HYDROcodone/Acetaminophen 5/325 mg Tablet PO PRN (12:47)
[2018-12-13] MEDS ORDERED: Mag-Al 1200 mg/1200 mg/30 ML UDCUP PO PRN (12:47)
[2018-12-13] MEDS ORDERED: Morphine 2 MG/ML SYRINGE SLOW IVP PRN (12:47)
[2018-12-13] MEDS ORDERED: Bisacodyl 5 MG TAB PO PRN (12:47)
[2018-12-13] MEDS ORDERED: DOPamine 400 MG/D5W 250 ML 250 ML IVPB PRN (12:47)
[2018-12-13] MEDS ORDERED: hydrALAZINE 20 MG/ML VIAL SLOW IVP PRN (12:47)
[2018-12-13] MEDS ORDERED: Promethazine HCl 25 MG/ML VIAL IM PRN (12:47)
[2018-12-13] MEDS ORDERED: niCARdipine 25 MG in Sodium Chloride 0.9% 250 ML 240 ML IVPB PRN (12:47)
[2018-12-13] MEDS ORDERED: Post-Op Insulin Drip Protocol IVPB ONE (12:47)
[2018-12-13] MEDS ORDERED: Guaifenesin DM 100-10/5 ML UDCUP PO PRN (12:47)
[2018-12-13] MEDS ORDERED: Bisacodyl 10 MG SUPP PR PRN (12:47)
[2018-12-13] MEDS ORDERED: Dextrose 5% in Water 1,000 ML IV PRN (12:55)
[2018-12-13] MEDS ORDERED: HUMULIN R 100 UNITS in Sodium Chloride 0.9% 100 ML IVPB SCH (12:55)
[2018-12-13] MEDS ORDERED: Dextrose 50% Abboject 50 ML SYRINGE SLOW IVP PRN (12:55)
[2018-12-13] MEDS ORDERED: Magnesium 2 GM/50 ML 2 GM in Premix Bag 1 BAG IVPB SCH (13:00)
--- NOTE | 2018-12-13 13:01 | RAD ---
EXAM: XR Chest 1 View Portable PROVIDED CLINICAL HISTORY: Post open heart COMPARISON: 12/11/2018 FINDINGS: Cardiac and mediastinal silhouette is within normal limits. Interval placement of endotracheal tube, the tip of which projects in the region of the thoracic inlet. Interval placement of right subclavian central line, tip of which projects in the region of the right atrium. Mediastinal drains are noted. The supine nature of the study is not sensitive for detection of pleural fluid or pneumothorax. Median sternotomy changes are now seen. IMPRESSION: Interval lines and tubes as described.
[2018-12-13 13:08] LABS: Actual Bicarbonate (HCO3a) 20.1 mEq/L (22-28); Base Excess (BEa) -4.8 mEq/L (-2.0 to +3.0); Calcium, Ionized 1.09 mmol/L (1.12-1.30); Carboxyhemoglobin (COHb) 0.8 gm% (0.0-3.0); Hemoglobin (Hb) 14.5 g/dL (14.0-18.0); O2 Tension (PaO2) 200.5 mmHg (> 70.0); Potassium - ABG Lab 3.88 mmol/L (3.70-5.30); pH, Arterial 7.35 (7.35-7.45)
[2018-12-13 13:13] LABS: #Eosinphils 0.1 thou/uL (0.0-0.7); #Lymphocytes 0.9 thou/uL (1.20-3.40); #Monocytes 0.7 thou/uL (0.11-0.59); #Neutrophils 11.9 thou/uL (1.40-6.50); %Basophils 0.2 % (0.0-1.0); %Eosinophils 0.5 % (0.0-10.0); %Lymphocytes 6.8 % (21.0-51.0); %Monocytes 5.4 % (0.0-10.0); %Neutrophils 87.1 % (42.0-75.0); Hemoglobin 13.8 g/dL (14.0-18.0); Mean Corpuscular HGB CONC 32.7 g/dL (32.0-36.0); Mean Corpuscular Hemoglobin 29.8 pg (27.0-31.0); Mean Corpuscular Volume 91.3 fL (78.0-98.0); Mean Platelet Volume 9.1 fL (7.4-10.4); Platelet Count 151 thou/uL (130-400); Red Blood Cell (RBC) Count 4.63 mill/uL (4.70-6.10); White Blood Cell (WBC) Count 13.6 thou/uL (4.8-10.8)
[2018-12-13 13:16] LABS: Puncture Site LINE
[2018-12-13] MEDS: Lactated Ringer's 1,000 ML IV SCH (13:16)
[2018-12-13 13:19] LABS: INR-International Normal Ratio 1.3; Prothrombin Time 16.1 SEC (12.0-14.7)
[2018-12-13] MEDS ORDERED: Thrombin 5000 UNITS/5 ML VIAL ONE (13:21)
[2018-12-13] MEDS ORDERED: Protamine Sulfate 250 MG/25 ML VIAL ONE (13:21)
[2018-12-13] MEDS ORDERED: Calcium Chloride 1 GM/10 ML Abboject SYRINGE ONE (13:21)
[2018-12-13] MEDS ORDERED: Heparin 30,000 units/30 ml VIAL ONE (13:21)
[2018-12-13] MEDS ORDERED: PROPOFOL 200 MG/20 ML VIAL ONE (13:21)
[2018-12-13] MEDS ORDERED: Heparin 5,000 UNITS/ML VIAL ONE (13:21)
[2018-12-13] MEDS ORDERED: Mannitol 12.5 GM/50 ML ONE (13:21)
[2018-12-13] MEDS ORDERED: Papaverine 60 MG/2 ML VIAL ONE (13:21)
[2018-12-13] MEDS ORDERED: Norepinephrine 4 MG/4 ML VIAL ONE (13:21)
[2018-12-13] MEDS ORDERED: Sodium Bicarb 50 MEQ/50 ML VIAL ONE (13:21)
[2018-12-13] MEDS ORDERED: Magnesium 5 GM/10 ML VIAL ONE (13:21)
[2018-12-13] MEDS ORDERED: Potassium Chloride 60 MEQ/30 ML VIAL ONE (13:21)
[2018-12-13] MEDS ORDERED: Lidocaine 2% PF 100 mg/5 ml Syringe ONE (13:21)
[2018-12-13] MEDS ORDERED: Aminocaproic Acid 5 GM/20 ML VIAL ONE (13:21)
[2018-12-13] MEDS ORDERED: Lidocaine 1% PF 5 ML VIAL ONE (13:21)
[2018-12-13] MEDS ORDERED: Cardioplegic Soln 1,000 ML BAG ONE (13:21)
[2018-12-13] MEDS: Insulin Regular 300 UNITS/3 ML VIAL SC PRN ×3 (13:28→19:22)
[2018-12-13 13:53] LABS: Anion Gap 12 mmol/L (10-20); BUN (Urea Nitrogen) 15 mg/dL (8.4-25.7); Calc. Creatinine Clearance 115 mL/min (70-130); Calcium 7.6 mg/dL (7.8-10.44); Carbon Dioxide 20 mmol/L (23-31); Chloride 111 mmol/L (98-107); Estimated GFR-MDRD Greater than 90; Glucose 147 mg/dL (83-110); Potassium 3.8 mmol/L (3.5-5.1); Sodium 139 mmol/L (136-145)
--- NOTE | 2018-12-13 14:25 | PDOC.CPN ---
- Subjective Date: 12/13/18 Time: 14:23 - Review of Systems ROS unobtainable: due to endotracheal tube - Objective Allergies/Adverse Reactions: Allergies Allergy/AdvReac Type Severity Reaction Status Date / Time No Known Allergies Allergy Verified 05/31/18 14:15 Visit Medications: Current Medications Acetaminophen (Tylenol) 650 mg PO Q6H PRN PRN Reason: Headache/Fever Or Mild Pain Hydrocodone Bitart/Acetaminophen ([place] 5/325) 1 tab PO Q4H PRN PRN Reason: Moderate Pain (4-6) Hydrocodone Bitart/Acetaminophen ([place] 5/325) 2 tab PO Q4H PRN PRN Reason: Severe Pain (7-10) Al Hydroxide/Mg Hydroxide (Maalox) 30 ml PO Q4H PRN PRN Reason: Indigestion Albumin Human (Albumin 5%) 12.5 gm IVPB Q6H PRN PRN Reason: To Maintain SBP> 90 mmHG Stop: 12/14/18 12:48 Albumin Human (Albumin 5%) 25 gm IVPB Q6H PRN PRN Reason: To Maintain SBP > 90 mmHG Stop: 12/14/18 12:48 Last Admin: 12/13/18 14:19 Dose: 25 gm Albuterol/Ipratropium (Duoneb) 3 ml NEB [id number] PRN PRN Reason: SHORTNESS OF BREATH Aspirin (Aspirin) 325 mg PO DAILY NIKOLE Bisacodyl (Dulcolax) 10 mg PO Q12H PRN PRN Reason: Constipation Bisacodyl (Dulcolax) 10 mg DE Q12H PRN PRN Reason: Constipation Dextrose/Water (Dextrose 50%) 25 gm SLOW IVP PRN PRN PRN Reason: PER HYPOGLYCEMIC PROTOCOL Enoxaparin Sodium (Lovenox) 40 mg SC 0900 NIKOLE Last Admin: 12/13/18 07:38 Dose: Not Given Famotidine (Pepcid) 20 mg SLOW IVP Q12HR NIKOLE Fentanyl (Sublimaze) 25 mcg SLOW IVP Q2H PRN PRN Reason: Moderate Pain (4-6) Stop: 12/15/18 12:38 Fentanyl (Sublimaze) 50 mcg SLOW IVP Q2H PRN PRN Reason: Severe Pain (7-10) Stop: 12/15/18 12:38 Last Admin: 12/13/18 13:33 Dose: 50 mcg Glucagon (Glucagon) 1 mg SC PRN PRN PRN Reason: PER HYPOGLYCEMIC PROTOCOL Guaifenesin/Dextromethorphan (Robitussin Dm) 15 ml PO Q4H PRN PRN Reason: Cough Hydralazine HCl (Apresoline) 10 mg SLOW IVP Q6H PRN PRN Reason: To Maintain SBP< 140mmHG Cefazolin Sodium/Dextrose 2 gm (/ Device) 50 mls @ 100 mls/hr IVPB 0300,1100, 1900 [facility] Stop: 12/14/18 11:29 Dopamine HCl/Dextrose (Dopamine 400 Mg/D5w 250 Ml) 250 mls @ 0 mls/hr IVPB PRN PRN; Protocol PRN Reason: To maintain SBP > 90 mmHG Hetastarch/Sodium Chloride (Hespan) 500 mls @ 0 mls/hr IVPB PRN PRN PRN Reason: To Maintain SBP > 90mmHg Stop: 12/14/18 12:38 Lactated Ringer's (Lactated Ringer's) 1,000 mls @ 75 mls/hr IV .[id number] [facility] Last Admin: 12/13/18 13:16 Dose: 1,000 mls Norepinephrine Bitartrate (Levophed) 250 mls @ 0 mls/hr IVPB PRN PRN; Protocol PRN Reason: To maintain SBP > 90 mmHG Magnesium Sulfate 2 gm/ Device 50 mls @ 50 mls/hr IVPB NOW [facility] Stop: 12/13/18 15:00 Last Admin: 12/13/18 13:29 Dose: 50 mls Nicardipine HCl 25 mg/ Sodium (Chloride) 250 mls @ 0 mls/hr IVPB INF PRN; Protocol PRN Reason: To Maintain SBP< 140mmHG Nitroglycerin/Dextrose (Nitroglycerin 50 Mg/250 Ml Bot) 250 mls @ 0 mls/hr IVPB PRN PRN; Protocol PRN Reason: To Maintain SBP< 140mmHG Insulin Human Regular 100 (units/ Sodium Chloride) 101 mls @ 0 mls/hr IVPB INF NIKOLE; Protocol Dextrose/Water (D5w) 1,000 mls @ 0 mls/hr IV INF PRN PRN Reason: PRN HYPOGLYCEMIC PROTOCOL Insulin Human Regular (Humulin R) 0 units SC Q4H PRN; Protocol PRN Reason: POST OP SLIDING SCALE Last Admin: 12/13/18 13:28 Dose: 2 unit Morphine Sulfate (Morphine) 2 mg SLOW IVP Q15MIN PRN PRN Reason: Severe Pain (7-10) Ondansetron HCl (Zofran) 4 mg IVP Q6H PRN PRN Reason: Nausea/Vomiting Potassium Chloride (Kcl) 20 meq IVPB PRN PRN PRN Reason: K level </= 4.0 Promethazine HCl (Phenergan) 6.25 mg IM Q4H PRN PRN Reason: Nausea/Vomiting Rosuvastatin Calcium (Crestor) 20 mg PO HS NIKOLE Last Admin: 12/12/18 20:23 Dose: 20 mg Vital Signs & Weight: Vital Signs Temp Pulse BP Pulse Ox 12/13/18 12:48 80 128/79 12/13/18 07:17 98 12/13/18 07:00 97.9 F Admit Weight 192 lb 3.889 oz Weight 192 lb 3.889 oz - Quality Measures Condition: Coronary Artery Disease CV meds: Beta Sangeeta: No (bradycardia), Statin: Yes, ASA: Yes - Medication Contraindications No Beta Sangeeta reason: Medical contraindication - Physical Exam General: other (sedated) HEENT: normocephaly Neck: supple neck Cardiac: regular rate and rhythm, no murmur, other (pacing) Lungs: clear to auscultation Abdomen: unremarkable Skin: clear - Labs Result Diagrams: 12/13/18 13:04 12/13/18 13:04 Troponin/CKMB Troponin I Less than 0.010 ng/mL (< 0.028) 12/12/18 07:41 - Assessment/Plan Assessment/Plan: 1. CAD. s/p CABG x 5. 2. Bradycardia. Pacing with temporary pacer. May need pacemaker prior to d/c. Stable post op.
[2018-12-13] MEDS: Potassium Chloride 20 MEQ/100 ML PREMIX BAG IVPB PRN (15:09)
[2018-12-13 16:08] LABS: Actual Bicarbonate (HCO3a) 17.9 mEq/L (22-28); Base Excess (BEa) -6.1 mEq/L (-2.0 to +3.0); CO2 Tension 31.4 mmHg (35.0-45.0); Calcium, Ionized 1.07 mmol/L (1.12-1.30); Carboxyhemoglobin (COHb) 0.8 gm% (0.0-3.0); Hemoglobin (Hb) 13.8 g/dL (14.0-18.0); O2 Tension (PaO2) 108.5 mmHg (> 70.0); pH, Arterial 7.37 (7.35-7.45)
[2018-12-13 16:09] LABS: Puncture Site LINE
[2018-12-13] MEDS: Ondansetron PF 4 MG/2 ML Vial IVP PRN (17:05)
[2018-12-13] MEDS: CEFAZOLIN 2 GM in Premix Bag 1 BAG IVPB SCH (19:20)
[2018-12-13 19:28] LABS: Hemoglobin 12.5 g/dL (14.0-18.0)
[2018-12-13 19:42] LABS: Potassium 4.2 mmol/L (3.5-5.1)
[2018-12-13] MEDS ORDERED: Famotidine/PF 20 mg/2ml Vial SLOW IVP SCH (21:00)
[2018-12-13] MEDS: Rosuvastatin 20 MG TAB PO SCH (21:12)
[2018-12-13] MEDS: HYDROcodone/Acetaminophen 5/325 mg Tablet PO PRN (22:59)
--- NOTE | 2018-12-13 23:16 | PDOC.HOSPP ---
- Subjective Encounter Date: 12/13/18 Encounter Time: 17:45 Subjective: Patient seen and examined for NSTEMI. On Vent. No new complaints. No overnight events - Objective Vital Signs & Weight: Vital Signs (12 hours) Temp Pulse Resp BP Pulse Ox 12/13/18 20:00 98.4 F 98 12/13/18 19:25 97 12/13/18 16:20 98 12/13/18 16:00 97.6 F 99 12/13/18 15:28 80 97/58 L 12/13/18 14:00 13 12/13/18 13:00 97.5 F L 12/13/18 12:48 80 128/79 12/13/18 12:47 12 Weight Admit Weight 192 lb 3.889 oz Weight 192 lb 3.889 oz Most Recent Monitor Data Heart Rate from ECG 80 NIBP 99/63 NIBP BP-Mean 75 Respiration from ECG 23 SpO2 97 I&O: 12/12/18 12/13/18 12/14/18 06:59 06:59 06:59 Intake Total 240 1740 1476.7 Output Total 775 1525 880 Balance -535 215 596.7 Result Diagrams: 12/14/18 03:35 12/14/18 03:35 Additional Labs: Accuchecks 12/13/18 12/13/18 12/13/18 19:22 15:21 13:07 POC Glucose 140 H 122 H 137 H 12/13/18 12/13/18 12/13/18 11:07 10:45 10:13 POC Glucose 145 H 131 H 132 H EKG Reviewed by me: Yes (Tele SR) Hospitalist ROS - Review of Systems ROS unobtainable: due to endotracheal tube - Medication Medications: Active Medications Generic Name Dose Route Start Last Admin Trade Name Freq PRN Reason Stop Dose Admin Hydrocodone Bitart/Acetaminophen 2 tab 12/13/18 12:47 12/13/18 22:59 [place] 5/325 PO 2 tab Q4H PRN Administration Severe Pain (7-10) Albumin Human 25 gm 12/13/18 12:47 12/13/18 14:19 Albumin 5% IVPB 12/14/18 12:48 25 gm Q6H PRN Administration To Maintain SBP > 90 mmHG Enoxaparin Sodium 40 mg 12/12/18 09:00 12/13/18 07:38 Lovenox SC Not Given 0900 NIKOLE Famotidine 20 mg 12/13/18 21:00 12/13/18 21:12 Pepcid PO 20 mg Q12HR NIKOLE Administration Fentanyl 25 mcg 12/13/18 12:47 12/13/18 17:03 Sublimaze SLOW IVP 12/15/18 12:38 25 mcg Q2H PRN Administration Moderate Pain (4-6) Fentanyl 50 mcg 12/13/18 12:47 12/13/18 13:33 Sublimaze SLOW IVP 12/15/18 12:38 50 mcg Q2H PRN Administration Severe Pain (7-10) Cefazolin Sodium/Dextrose 2 gm 50 mls @ 100 mls/hr 12/13/18 19:00 12/13/18 19 :20 / Device IVPB 12/14/18 11:29 50 mls 0300,1100,1900 NIKOLE Administration Dopamine HCl/Dextrose 250 mls @ 0 mls/hr 12/13/18 12:47 12/13/18 16:04 Dopamine 400 Mg/D5w 250 Ml IVPB 250 mls PRN PRN Administration To maintain SBP > 90 mmHG Protocol Titrate Lactated Ringer's 1,000 mls @ 75 mls/hr 12/13/18 12:47 12/13/18 13:16 Lactated Ringer's IV 1,000 mls .[id number] NIKOLE Administration Norepinephrine Bitartrate 250 mls @ 0 mls/hr 12/13/18 16:30 12/13/18 16:51 Levophed IVPB 250 mls PRN PRN Administration To maintain SBP > 90 mmHG Protocol Titrate Insulin Human Regular 0 units 12/13/18 12:55 12/13/18 19:22 Humulin R SC 2 unit Q4H PRN Administration POST OP SLIDING SCALE Protocol Ondansetron HCl 4 mg 12/13/18 12:47 12/13/18 17:05 Zofran IVP 4 mg Q6H PRN Administration Nausea/Vomiting Potassium Chloride 20 meq 12/13/18 12:47 12/13/18 15:09 Kcl IVPB 20 meq PRN PRN Administration K level </= 4.0 Rosuvastatin Calcium 20 mg 12/12/18 21:00 12/13/18 21:12 Crestor PO 20 mg HS NIKOLE Administration - Exam General Appearance: NAD Heart: RRR, no gallops Respiratory: CTAB, no rales Respiratory - other findings: chest tube + Gastrointestinal: soft, non-tender, normal bowel sounds Extremities: no edema Hosp A/P (1) Symptomatic bradycardia Code(s): R00.1 - BRADYCARDIA, UNSPECIFIED Status: Acute (2) CAD (coronary artery disease) Code(s): I25.10 - ATHSCL HEART DISEASE OF [place] CORONARY ARTERY W/O ANG PCTRS Status: Acute (3) S/P CABG (coronary artery bypass graft) Code(s): Z95.1 - PRESENCE OF AORTOCORONARY BYPASS GRAFT Status: Acute (4) HLD (hyperlipidemia) Code(s): E78.5 - HYPERLIPIDEMIA, UNSPECIFIED Status: Acute - Plan Cont ASA Cont Statins Cont supportive care
[2018-12-14] MEDS: Lactated Ringer's 1,000 ML IV SCH (03:09)
[2018-12-14] MEDS: CEFAZOLIN 2 GM in Premix Bag 1 BAG IVPB SCH ×2 (03:10→13:38)
[2018-12-14 03:56] LABS: #Lymphocytes 0.8 thou/uL (1.20-3.40); #Monocytes 0.7 thou/uL (0.11-0.59); #Neutrophils 8.4 thou/uL (1.40-6.50); %Eosinophils 0.1 % (0.0-10.0); %Lymphocytes 7.9 % (21.0-51.0); %Monocytes 6.6 % (0.0-10.0); %Neutrophils 85.4 % (42.0-75.0); Hemoglobin 12.5 g/dL (14.0-18.0); Mean Corpuscular HGB CONC 34.1 g/dL (32.0-36.0); Mean Corpuscular Hemoglobin 31.2 pg (27.0-31.0); Mean Corpuscular Volume 91.7 fL (78.0-98.0); Mean Platelet Volume 9.2 fL (7.4-10.4); Platelet Count 171 thou/uL (130-400); White Blood Cell (WBC) Count 9.8 thou/uL (4.8-10.8)
[2018-12-14 04:16] LABS: Anion Gap 9 mmol/L (10-20); BUN (Urea Nitrogen) 18 mg/dL (8.4-25.7); Calc. Creatinine Clearance 106 mL/min (70-130); Calcium 7.7 mg/dL (7.8-10.44); Carbon Dioxide 22 mmol/L (23-31); Chloride 114 mmol/L (98-107); Estimated GFR-MDRD Greater than 90; Glucose 131 mg/dL (83-110); Potassium 4.2 mmol/L (3.5-5.1); Sodium 141 mmol/L (136-145)
[2018-12-14] MEDS: HYDROcodone/Acetaminophen 5/325 mg Tablet PO PRN (06:18)
--- NOTE | 2018-12-14 07:40 | RAD ---
EXAM: Portable chest PROVIDED CLINICAL HISTORY: Post open heart COMPARISON: 12/13/2018 FINDINGS: Interval extubation. Additional significant interval change with respect to the prior examination is not apparent. IMPRESSION: As above.
[2018-12-14] MEDS: Acetaminophen 325 MG TAB PO PRN ×2 (08:21→21:20)
[2018-12-14] MEDS: Famotidine 20 MG TAB PO SCH ×2 (08:22→21:19)
[2018-12-14] MEDS: Aspirin 325 MG TAB PO SCH (08:23)
[2018-12-14] MEDS ORDERED: traMADol HCl 50 MG TAB PO PRN (09:03)
--- NOTE | 2018-12-14 09:47 | PRG ---
DATE OF SERVICE: 12/14/2018 SUBJECTIVE: Mr. Borjas is doing okay. He was pacing this morning. The pacemaker was put on standby, but he has heart rates dropping in the 30s. He feels okay now. We will put him back on the pacemaker. OBJECTIVE: LUNGS: Clear. CARDIAC: Normal S1 and normal S2. ABDOMEN: Soft and nontender. EXTREMITIES: There is no edema. ASSESSMENT: 1. Status post bypass surgery. 2. Sick sinus syndrome with intermittent bradycardia. PLAN: 1. Turn back on the temporary epicardial pacemaker. 2. We will need permanent pacemaker almost certainly, tentatively planned that for Sunday. Job ID: [id number]
--- NOTE | 2018-12-14 10:34 | PRG ---
DATE OF SERVICE: 12/14/2018 SUBJECTIVE: The patient remains in the CCU primarily because he needs to have his atrial paced. He may need a pacemaker next week. Other than that, he feels well, has no complaints. OBJECTIVE: VITAL SIGNS: Heart rate 70, blood pressure 97/70, O2 saturation 99%, respiratory rate 21. 24-hour intake, 2413; output 1290. HEENT: Unremarkable. NECK: No adenopathy. No JVD. LUNGS: Clear. CARDIAC: S1, S2 paced. ABDOMEN: Soft, nontender. EXTREMITIES: No edema. LABORATORY DATA: Sodium 141, potassium 4.2, BUN 18, creatinine 0.7, glucose 131. White blood cell count 9.8, hematocrit 36.6, and platelet count 171. ASSESSMENT: The patient is doing well from a pulmonary standpoint. Main issue is his heart rate. PLAN: Continue supportive care. Job ID: [id number]
[2018-12-14] MEDS: Enoxaparin Sodium 40 MG/0.4 ML SYRINGE SC SCH (13:34)
[2018-12-14] MEDS: traMADol HCl 50 MG TAB PO PRN (17:20)
[2018-12-14] MEDS: Rosuvastatin 20 MG TAB PO SCH (21:19)
--- NOTE | 2018-12-14 23:53 | PDOC.HOSPP ---
- Subjective Encounter Date: 12/14/18 Encounter Time: 11:30 Subjective: Patient seen and examined for CAD. Extubated. No CP. No new complaints. No overnight events - Objective Vital Signs & Weight: Vital Signs (12 hours) Temp 12/14/18 16:00 98.6 F 12/14/18 12:00 98 F Weight Admit Weight 192 lb 3.889 oz Weight 173 lb 1.006 oz Most Recent Monitor Data Heart Rate from ECG 68 NIBP 102/67 NIBP BP-Mean 78 Respiration from ECG 19 SpO2 98 I&O: 12/13/18 12/14/18 12/15/18 06:59 06:59 06:59 Intake Total 1740 2413.7 1730 Output Total 1525 1290 345 Balance 215 1123.7 1385 Result Diagrams: 12/14/18 03:35 12/14/18 03:35 Additional Labs: Accuchecks 12/14/18 12/14/18 12/13/18 08:18 03:39 23:59 POC Glucose 124 H 124 H 115 H EKG Reviewed by me: Yes (Tele SR) Hospitalist ROS - Review of Systems Respiratory: denies: cough, dry, shortness of breath, hemoptysis, SOB with excertion, pleuritic pain, sputum, wheezing, other Cardiovascular: denies: chest pain, palpitations, orthopnea, paroxysmal noc. dyspnea, edema, light headedness, other - Medication Medications: Active Medications Generic Name Dose Route Start Last Admin Trade Name Freq PRN Reason Stop Dose Admin Acetaminophen 650 mg 12/13/18 12:47 12/14/18 21:20 Tylenol PO 650 mg Q6H PRN Administration Headache/Fever Or Mild Pain Al Hydroxide/Mg Hydroxide 30 ml 12/13/18 12:47 12/14/18 17:20 Maalox PO 30 ml Q4H PRN Administration Indigestion Aspirin 325 mg 12/14/18 09:00 12/14/18 08:23 Aspirin PO 325 mg DAILY NIKOLE Administration Famotidine 20 mg 12/13/18 21:00 12/14/18 21:19 Pepcid PO 20 mg Q12HR NIKOLE Administration Fentanyl 25 mcg 12/13/18 12:47 12/13/18 17:03 Sublimaze SLOW IVP 12/15/18 12:38 25 mcg Q2H PRN Administration Moderate Pain (4-6) Fentanyl 50 mcg 12/13/18 12:47 12/13/18 13:33 Sublimaze SLOW IVP 12/15/18 12:38 50 mcg Q2H PRN Administration Severe Pain (7-10) Ondansetron HCl 4 mg 12/13/18 12:47 12/13/18 17:05 Zofran IVP 4 mg Q6H PRN Administration Nausea/Vomiting Potassium Chloride 20 meq 12/13/18 12:47 12/13/18 15:09 Kcl IVPB 20 meq PRN PRN Administration K level </= 4.0 Rosuvastatin Calcium 20 mg 12/12/18 21:00 12/14/18 21:19 Crestor PO 20 mg HS NIKOLE Administration Tramadol HCl 100 mg 12/14/18 09:03 12/14/18 17:20 Ultram PO 100 mg Q6H PRN Administration Moderate Pain (4-6) - Exam General Appearance: NAD Neck: supple, no JVD Heart: no gallops Respiratory: CTAB, no wheezes, no rales Gastrointestinal: soft, non-tender, normal bowel sounds Extremities: no edema Hosp A/P (1) Symptomatic bradycardia Code(s): R00.1 - BRADYCARDIA, UNSPECIFIED Status: Acute (2) CAD (coronary artery disease) Code(s): I25.10 - ATHSCL HEART DISEASE OF [place] CORONARY ARTERY W/O ANG PCTRS Status: Acute (3) S/P CABG (coronary artery bypass graft) Code(s): Z95.1 - PRESENCE OF AORTOCORONARY BYPASS GRAFT Status: Acute (4) HLD (hyperlipidemia) Code(s): E78.5 - HYPERLIPIDEMIA, UNSPECIFIED Status: Acute - Plan Cont ASA/Statins Cont supportive care IVF dced GI prophylaxis Cardiac rehab
--- NOTE | 2018-12-15 01:28 | EKG ---
Test Reason : Blood Pressure : / mmHG Vent. Rate : 046 BPM Atrial Rate : 046 BPM P-R Int : 294 ms QRS Dur : 126 ms QT Int : 430 ms P-R-T Axes : 024 -57 082 degrees QTc Int : 376 ms Sinus bradycardia with 1st degree A-V block Left axis deviation Non-specific intra-ventricular conduction block Cannot rule out Septal infarct , age undetermined Abnormal ECG Confirmed by ADRIANO TOMAS ([id number]), editor in chief newspaper MIRELLA LOW ([id number]) on 12/15/2018 1:27:26 AM Referred By: Confirmed By:ADRIANO TOMAS
[2018-12-15] MEDS: traMADol HCl 50 MG TAB PO PRN (06:23)
[2018-12-15] MEDS: Aspirin 325 MG TAB PO SCH (08:34)
[2018-12-15] MEDS: Famotidine 20 MG TAB PO SCH ×2 (08:35→20:25)
[2018-12-15] MEDS: Acetaminophen 325 MG TAB PO PRN ×3 (08:54→21:35)
[2018-12-15] MEDS ORDERED: Sodium Chloride 0.9% 500 ML IV SCH (09:30)
[2018-12-15] MEDS ORDERED: DOBUTamine 500 mg/250 ml 250 ML IVPB SCH (09:30)
--- NOTE | 2018-12-15 09:37 | PRG ---
DATE OF SERVICE: 12/15/2018 SUBJECTIVE: The patient is up in a chair. He is not feeling very well, but has no specific complaints. His atrium continues to be paced. OBJECTIVE: VITAL SIGNS: On exam, temperature is 100.2, pulse 56, blood pressure 89/68, and O2 saturation 93% on room air. HEENT: Unremarkable. NECK: No adenopathy, JVD, or bruits. LUNGS: Clear anteriorly. CARDIAC: S1 and S2. Slightly bradycardic. ABDOMEN: Soft. EXTREMITIES: No edema. ASSESSMENT: 1. Post coronary artery bypass grafting. 2. Symptomatic bradycardia. PLAN: May need a pacemaker. We will go ahead and recheck labs tomorrow. Job ID: [id number]
--- NOTE | 2018-12-15 09:43 | PRG ---
DATE OF SERVICE: 12/15/2018 PRIMARY PRODUCT SAFETY CONSULTANT: Dr. Jamison Gifford. SUBJECTIVE: Mr. Borjas is sitting up in the chair at the bedside. He is feeling fine. OBJECTIVE: VITAL SIGNS: Blood pressure is 100 systolic. His pulse is 55 to 65. It is mostly junctional with some occasional sinus rhythm with premature atrial contractions. Intermittently, he is bradycardic. LUNGS: Clear. CARDIAC: Normal S1. Normal S2. ABDOMEN: Soft and nontender. EXTREMITIES: Warm and dry. No clubbing, cyanosis, or edema. DIAGNOSTIC STUDIES: The temporary pacemaker at the atrial lead is no longer capturing. The ventricular lead threshold is still good. Capturing is set at 4 V. ASSESSMENT: 1. Status post bypass surgery. 2. Sinus bradycardia, predates his bypass surgery. PLAN: 1. Reprogram the pacemaker to VVI at a rate of 45 to try to avoid ventricular pacing. 2. Needs to proceed with pacemaker tomorrow. Discussed risk of bleeding, infection, air on the lung. Dr. Gifford will see the patient tomorrow and schedule a pacemaker insertion tomorrow. Job ID: [id number]
--- NOTE | 2018-12-15 18:03 | PDOC.HOSPP ---
- Subjective Encounter Date: 12/15/18 Encounter Time: 13:00 Subjective: Patient seen and examined for Symptomatic bradycardia. No CP. Hypotensive earlier - responded to IVF. No new complaints. No overnight events - Objective Vital Signs & Weight: Vital Signs (12 hours) Temp Pulse Ox 12/15/18 16:00 98.3 F 12/15/18 12:00 98.5 F 12/15/18 08:00 98 12/15/18 07:00 100.2 F H Weight Admit Weight 192 lb 3.889 oz Weight 173 lb 1.006 oz Most Recent Monitor Data Heart Rate from ECG 65 NIBP 90/52 NIBP BP-Mean 64 Respiration from ECG 20 SpO2 92 I&O: 12/14/18 12/15/18 12/16/18 06:59 06:59 06:59 Intake Total 2413.7 1830 1470 Output Total 1290 780 261 Balance 1123.7 1050 1209 Result Diagrams: 12/14/18 03:35 12/14/18 03:35 EKG Reviewed by me: Yes (Tele SR) Hospitalist ROS - Review of Systems Respiratory: denies: cough, dry, shortness of breath, hemoptysis, SOB with excertion, pleuritic pain, sputum, wheezing, other Cardiovascular: denies: chest pain, palpitations, orthopnea, paroxysmal noc. dyspnea, edema, light headedness, other - Medication Medications: Active Medications Generic Name Dose Route Start Last Admin Trade Name Freq PRN Reason Stop Dose Admin Acetaminophen 650 mg 12/13/18 12:47 12/15/18 15:32 Tylenol PO 650 mg Q6H PRN Administration Headache/Fever Or Mild Pain Al Hydroxide/Mg Hydroxide 30 ml 12/13/18 12:47 12/14/18 17:20 Maalox PO 30 ml Q4H PRN Administration Indigestion Aspirin 325 mg 12/14/18 09:00 12/15/18 08:34 Aspirin PO 325 mg DAILY NIKOLE Administration Famotidine 20 mg 12/13/18 21:00 12/15/18 08:35 Pepcid PO 20 mg Q12HR NIKOLE Administration Dobutamine HCl/Dextrose 250 mls @ 5.888 mls/hr 12/15/18 09:30 12/15/18 11:54 Dobutamine 500 Mg/250 Ml IVPB 250 mls INF NIKOLE Administration Protocol 2.5 MCG/KG/MIN Ondansetron HCl 4 mg 12/13/18 12:47 12/13/18 17:05 Zofran IVP 4 mg Q6H PRN Administration Nausea/Vomiting Potassium Chloride 20 meq 12/13/18 12:47 12/13/18 15:09 Kcl IVPB 20 meq PRN PRN Administration K level </= 4.0 Rosuvastatin Calcium 20 mg 12/12/18 21:00 12/14/18 21:19 Crestor PO 20 mg HS NIKOLE Administration Sodium Chloride 10 ml 12/14/18 21:00 12/15/18 08:35 Flush - Normal Saline IVF 10 ml Q12HR NIKOLE Administration Tramadol HCl 100 mg 12/14/18 09:03 12/15/18 06:23 Ultram PO 100 mg Q6H PRN Administration Moderate Pain (4-6) - Exam General Appearance: NAD Neck: supple, no JVD Psychiatric: normal affect, A&O x 3 Hosp A/P (1) Symptomatic bradycardia Code(s): R00.1 - BRADYCARDIA, UNSPECIFIED Status: Acute (2) CAD (coronary artery disease) Code(s): I25.10 - ATHSCL HEART DISEASE OF [place] CORONARY ARTERY W/O ANG PCTRS Status: Acute (3) S/P CABG (coronary artery bypass graft) Code(s): Z95.1 - PRESENCE OF AORTOCORONARY BYPASS GRAFT Status: Acute (4) HLD (hyperlipidemia) Code(s): E78.5 - HYPERLIPIDEMIA, UNSPECIFIED Status: Acute - Plan Permanent pacemaker in AM NPO past MN Cont ASA/Statins Cont Cardiac rehab
[2018-12-15] MEDS ORDERED: CEFAZOLIN 2 GM in Premix Bag 1 BAG IVPB SCH (18:15)
[2018-12-15] MEDS: Rosuvastatin 20 MG TAB PO SCH (20:25)
[2018-12-16] MEDS: Acetaminophen 325 MG TAB PO PRN ×2 (03:44→20:08)
[2018-12-16 05:02] LABS: Anion Gap 12 mmol/L (10-20); BUN (Urea Nitrogen) 23 mg/dL (8.4-25.7); Band 3 % (5-11); Calc. Creatinine Clearance 89 mL/min (70-130); Calcium 8.3 mg/dL (7.8-10.44); Carbon Dioxide 25 mmol/L (23-31); Chloride 101 mmol/L (98-107); Estimated GFR-MDRD Greater than 90; Glucose 107 mg/dL (83-110); Hemoglobin 11.2 g/dL (14.0-18.0); Lymphocytes 18 % (21-51); MDiff Complete? YES; Mean Corpuscular HGB CONC 32.4 g/dL (32.0-36.0); Mean Corpuscular Hemoglobin 29.9 pg (27.0-31.0); Mean Corpuscular Volume 92.2 fL (78.0-98.0); Mean Platelet Volume 7.2 fL (7.4-10.4); Monocytes 10 % (0-10); Neutrophil 69 % (42-75); Platelet Count 157 thou/uL (130-400); Platelet Morphology Comment Appears Adequate; Red Blood Cell (RBC) Count 3.73 mill/uL (4.70-6.10); Sodium 134 mmol/L (136-145); White Blood Cell (WBC) Count 10.2 thou/uL (4.8-10.8)
[2018-12-16] MEDS: Potassium Chloride 20 MEQ/100 ML PREMIX BAG IVPB PRN (08:05)
--- NOTE | 2018-12-16 10:23 | OP ---
DATE OF PROCEDURE: 12/13/2018 PREOPERATIVE DIAGNOSES: Coronary artery disease and symptomatic bradycardia. PROCEDURES PERFORMED: Coronary artery bypass graft x5, left internal mammary artery to a distal LAD, which accepted a 1 mm probe proximally and distally, left radial artery to a 1.25 mm diagonal that was done rather distally. Saphenous vein to an OM1 and OM2, both of which measured 2 mm and a right PDA, which measured 1.5 to 2 mm. LIFT DRIVER: Bk Odom MD TRANSFUSION: None. DESCRIPTION OF PROCEDURE: After adequate anesthesia had been obtained, the patient was prepped and draped. Dr. Odom did an endovascular vein harvest of the left greater saphenous vein while I performed a left radial artery harvest. Following median sternotomy, left internal mammary artery was harvested. The patient heparinized. The mammary divided distally and passed medial to small thymic gland. Aorta and right atrium were cannulated, and cardiopulmonary bypass was begun. The aorta was crossclamped and a liter of cold blood cardioplegia given through the aortic root. Following this, PDA anastomosis was completed with a nice segment of vein into a nice vessel. Similarly, the second OM was opened and this anastomosis completed. The distal circ was felt to be rather small and was not grafted and the OM1 was then grafted, which had palpable calcification just prior to becoming intramyocardial. The diagonal was palpated and was diffusely calcified and had to be opened rather distally where it was a small vessel. The radial artery was anastomosed here and finally, the LAD was palpated and there was calcification throughout its length and it was done rather distally after a late bifurcation, but it did accept a 1 mm probe. Following completion of this anastomosis, the cross-clamp was removed and the partial occluding clamp placed in the right coronary and the OM2 anastomosis were performed on the aortic root and marked with rings. To the ren of the OM2 graft at the aorta, the radial artery was anastomosed and then slightly more distally on the OM2 graft, the OM1 graft was placed. The patient was then weaned from cardiopulmonary bypass after several sutures were required in the radial to diagonal graft anastomosis. Temporary atrial and ventricular pacing wires were placed and utilized. The sternum was reapproximated with #7 interrupted wire using vancomycin paste on the sternal edges, platelet rich blood and platelet poor plasma. Subcutaneous tissue and skin were closed in layers. The patient was to be taken to the ICU. Job ID: [id number]
[2018-12-16] MEDS ORDERED: Morphine 4 MG/ML VIAL ONE (12:35)
[2018-12-16] MEDS: Ondansetron PF 4 MG/2 ML Vial IVP PRN (12:43)
[2018-12-16] MEDS ORDERED: Morphine 4 MG/ML VIAL SLOW IVP SCH (13:00)
[2018-12-16] MEDS: Aspirin 325 MG TAB PO SCH (13:34)
[2018-12-16] MEDS: Famotidine 20 MG TAB PO SCH ×2 (13:34→20:08)
[2018-12-16] MEDS ORDERED: Lidocaine 1% (PF) 30 ML VIAL ONE (14:26)
[2018-12-16] MEDS ORDERED: Gentamicin 80 MG/2 ML VIAL ONE (14:26)
[2018-12-16] MEDS ORDERED: CEFAZOLIN 1 GM VIAL ONE (14:26)
--- NOTE | 2018-12-16 14:32 | PDOC.CPN ---
- Subjective Date: 12/16/18 Time: 08:30 Interval history: The pt seen and examined. No overnight event. No cardiac complaints. - Objective Allergies/Adverse Reactions: Allergies Allergy/AdvReac Type Severity Reaction Status Date / Time No Known Allergies Allergy Verified 05/31/18 14:15 Visit Medications: Current Medications Acetaminophen (Tylenol) 650 mg PO Q6H PRN PRN Reason: Headache/Fever Or Mild Pain Last Admin: 12/16/18 03:44 Dose: 650 mg Al Hydroxide/Mg Hydroxide (Maalox) 30 ml PO Q4H PRN PRN Reason: Indigestion Last Admin: 12/14/18 17:20 Dose: 30 ml Albuterol/Ipratropium (Duoneb) 3 ml NEB [id number] PRN PRN Reason: SHORTNESS OF BREATH Aspirin (Aspirin) 325 mg PO DAILY [facility] Last Admin: 12/16/18 13:34 Dose: Not Given Bisacodyl (Dulcolax) 10 mg PO Q12H PRN PRN Reason: Constipation Last Admin: 12/15/18 20:25 Dose: 10 mg Bisacodyl (Dulcolax) 10 mg MA Q12H PRN PRN Reason: Constipation Famotidine (Pepcid) 20 mg PO Q12HR [facility]KOLE Last Admin: 12/16/18 13:34 Dose: Not Given Guaifenesin/Dextromethorphan (Robitussin Dm) 15 ml PO Q4H PRN PRN Reason: Cough Hydralazine HCl (Apresoline) 10 mg SLOW IVP Q6H PRN PRN Reason: To Maintain SBP< 140mmHG Dobutamine HCl/Dextrose (Dobutamine 500 Mg/250 Ml) 250 mls @ 5.888 mls/hr IVPB INF NIKOLE; Protocol Last Admin: 12/15/18 11:54 Dose: 250 mls Cefazolin Sodium/Dextrose 2 gm (/ Device) 50 mls @ 100 mls/hr IVPB ONCALL-OR NIKOLE Stop: 12/16/18 18:16 Last Admin: 12/16/18 08:35 Dose: 50 mls Morphine Sulfate (Morphine) 4 mg SLOW IVP NOW NIKOLE Stop: 12/16/18 15:00 Last Admin: 12/16/18 13:33 Dose: Not Given Ondansetron HCl (Zofran) 4 mg IVP Q6H PRN PRN Reason: Nausea/Vomiting Last Admin: 12/16/18 12:43 Dose: 4 mg Potassium Chloride (Kcl) 20 meq IVPB PRN PRN PRN Reason: K level </= 4.0 Last Admin: 12/16/18 08:05 Dose: 20 meq Rosuvastatin Calcium (Crestor) 20 mg PO HS NIKOLE Last Admin: 12/15/18 20:25 Dose: 20 mg Sodium Chloride (Flush - Normal Saline) 10 ml IVF Q12HR NIKOLE Last Admin: 12/16/18 08:37 Dose: 10 ml Sodium Chloride (Flush - Normal Saline) 10 ml IVF PRN PRN PRN Reason: Saline Flush Sodium Chloride (Flush - Normal Saline) 10 ml IVF Q12HR NIKOLE Sodium Chloride (Flush - Normal Saline) 10 ml IVF PRN PRN PRN Reason: Saline Flush Tramadol HCl (Ultram) 50 mg PO Q6H PRN PRN Reason: Mild Pain (1-3) Tramadol HCl (Ultram) 100 mg PO Q6H PRN PRN Reason: Moderate Pain (4-6) Last Admin: 12/15/18 06:23 Dose: 100 mg Vital Signs & Weight: Vital Signs Temp Pulse Ox 12/16/18 12:00 98.6 F 12/16/18 07:48 99 12/16/18 07:00 99.4 F 12/16/18 04:00 97.7 F Admit Weight 192 lb 3.889 oz Weight 204 lb 9.423 oz - Quality Measures Condition: Coronary Artery Disease CV meds: Beta Sangeeta: No (bradycardia), Statin: Yes, ASA: Yes - Medication Contraindications No Beta Sangeeta reason: Medical contraindication - Physical Exam HEENT: mucus membranes moist Neck: supple neck Cardiac: regular rate and rhythm, S1/S2 Lungs: clear to auscultation, decreased breath sounds Neuro: cranial nerve 2-12 intact Musculoskeletal: normal range of motion, decreased range of motion - Labs Result Diagrams: 12/16/18 03:50 12/16/18 03:50 Troponin/CKMB Troponin I Less than 0.010 ng/mL (< 0.028) 12/12/18 07:41 - Telemetry Sinus rhythms and dysrhythmias: other (V paced) - Assessment/Plan Assessment/Plan: 1. CAD with s/p CABG x 5 on 12/13/2018 with HICKS-LAD, Lt radial-Diag, SVG-OM1 and OM2, and Rt PDA. 2. Bradycardiac - V pacing with external Pacing; plan for PM placement on 2018; 3. HLD - On Statin MAR reviewed * The procedure and the risk of PM placement was explained to the pt and family , including, but not limited to: Hemorrhage, infection, pneumothrax, Hemothorax 2/2 PM wire perforation, and PM wire disloges; The pt and family voiced understanding and agreed to proceed the PM placement procedure. Pt. seen and eval. by me. I agree with nthe A/P by the LAUNDRY TUB MAKER. He is still on the epicardial pacemaker. He becomes bradycardia and symptomatic when the pacer is decreased. Plan for pacemaker insertion today. fritz
--- NOTE | 2018-12-16 15:01 | PRG ---
DATE OF SERVICE: 12/16/2018 SUBJECTIVE: Mr. Borjas was anxiously awaiting his pacemaker implantation. This has been delayed because of some urgencies in the cardiac catheterization lab. OBJECTIVE: VITAL SIGNS: He is afebrile. Heart rate is 60s, blood pressure 105/71, respiratory rate is 20. LUNGS: Clear. HEART: Regular rhythm. ABDOMEN: Soft. IMPRESSION: 1. Status post coronary artery bypass grafting. 2. Bradycardia, tentatively for pacemaker later today. He is stable at this point in time. Job ID: [id number]
[2018-12-16] MEDS ORDERED: Midazolam HCl 2 mg/2 ml Vial ONE (15:37)
[2018-12-16] MEDS ORDERED: Acetaminophen/Codeine 30-300mg Tablet PO PRN (16:33)
--- NOTE | 2018-12-16 16:45 | EKG ---
Test Reason : S/P CABG Blood Pressure : / mmHG Vent. Rate : 049 BPM Atrial Rate : 049 BPM P-R Int : 284 ms QRS Dur : 112 ms QT Int : 484 ms P-R-T Axes : -06 -66 082 degrees QTc Int : 437 ms Sinus bradycardia with 1st degree A-V block with occasional AV dual-paced complexes and Fusion comple xes Left anterior fascicular block Nonspecific ST and T wave abnormality Abnormal ECG Confirmed by DILLON KEVIN ([id number]) on 12/16/2018 4:45:14 PM Referred By: TAD Confirmed By:DILLON KEVIN
[2018-12-16] MEDS ORDERED: Furosemide 40 MG TAB PO SCH (18:30)
--- NOTE | 2018-12-16 19:02 | RAD ---
CHEST ONE VIEW: HISTORY: Post cardiac device placement. COMPARISON: Radiograph from two days prior. FINDINGS: Heart size is enlarged. There is a new dual-lead cardiac device, a dual-lead pacer with leads projec ting over the right atrium and right ventricle. No pneumothorax. Pulmonary vascular congestion is i mproving. IMPRESSION: Uncomplicated placement of a dual-lead cardiac pacer. POS: CET
[2018-12-16] MEDS: Rosuvastatin 20 MG TAB PO SCH (20:08)
--- NOTE | 2018-12-16 20:12 | PDOC.HOSPP ---
- Subjective Encounter Date: 12/16/18 Encounter Time: 14:00 Subjective: Patient seen and examined for CAD/Bradycardia. No CP. No new complaints. No overnight events - Objective Vital Signs & Weight: Vital Signs (12 hours) Temp Pulse Resp BP Pulse Ox 12/16/18 19:24 98 12/16/18 19:22 95 12/16/18 16:35 98.7 F 12/16/18 16:33 98.7 F 62 20 106/67 12/16/18 12:00 98.6 F Weight Admit Weight 192 lb 3.889 oz Weight 204 lb 9.423 oz Most Recent Monitor Data Heart Rate from ECG 64 NIBP 108/66 NIBP BP-Mean 80 Respiration from ECG 20 SpO2 100 I&O: 12/15/18 12/16/18 12/17/18 06:59 06:59 06:59 Intake Total 1830 1950 580 Output Total 780 703 375 Balance 1050 1247 205 Result Diagrams: 12/16/18 03:50 12/16/18 03:50 Additional Labs: Accuchecks 12/13/18 12/13/18 12/13/18 11:59 09:33 08:09 POC Glucose 143 H 136 H 89 EKG Reviewed by me: Yes (Tele SR/externally paced) Hospitalist ROS - Review of Systems Respiratory: denies: cough, dry, shortness of breath, hemoptysis, SOB with excertion, pleuritic pain, sputum, wheezing, other Cardiovascular: denies: chest pain, palpitations, orthopnea, paroxysmal noc. dyspnea, edema, light headedness, other - Medication Medications: Active Medications Generic Name Dose Route Start Last Admin Trade Name Freq PRN Reason Stop Dose Admin Acetaminophen 650 mg 12/13/18 12:47 12/16/18 20:08 Tylenol PO 650 mg Q6H PRN Administration Headache/Fever Or Mild Pain Al Hydroxide/Mg Hydroxide 30 ml 12/13/18 12:47 12/14/18 17:20 Maalox PO 30 ml Q4H PRN Administration Indigestion Aspirin 325 mg 12/14/18 09:00 12/16/18 13:34 Aspirin PO Not Given DAILY NIKO[facility] Bisacodyl 10 mg 12/13/18 12:47 12/15/18 20:25 Dulcolax PO 10 mg Q12H PRN Administration Constipation Famotidine 20 mg 12/13/18 21:00 12/16/18 20:08 Pepcid PO 20 mg Q12HR NIKOLE Administration Furosemide 40 mg 12/16/18 18:30 12/16/18 18:41 Lasix PO 12/16/18 20:30 40 mg NOW NIKOLE Administration Ondansetron HCl 4 mg 12/13/18 12:47 12/16/18 12:43 Zofran IVP 4 mg Q6H PRN Administration Nausea/Vomiting Potassium Chloride 20 meq 12/13/18 12:47 12/16/18 08:05 Kcl IVPB 20 meq PRN PRN Administration K level </= 4.0 Rosuvastatin Calcium 20 mg 12/12/18 21:00 12/16/18 20:08 Crestor PO 20 mg HS NIKOLE Administration Sodium Chloride 10 ml 12/14/18 21:00 12/16/18 20:08 Flush - Normal Saline IVF 10 ml Q12HR NIKOLE Administration Sodium Chloride 10 ml 12/16/18 21:00 12/16/18 20:08 Flush - Normal Saline IVF 10 ml Q12HR NIKOLE Administration Tramadol HCl 100 mg 12/14/18 09:03 12/15/18 06:23 Ultram PO 100 mg Q6H PRN Administration Moderate Pain (4-6) - Exam General Appearance: NAD Neck: supple, no JVD Heart: RRR, no gallops Respiratory: CTAB, no rales Gastrointestinal: soft, non-tender, non-distended, normal bowel sounds Hosp A/P (1) Symptomatic bradycardia Code(s): R00.1 - BRADYCARDIA, UNSPECIFIED Status: Acute (2) CAD (coronary artery disease) Code(s): I25.10 - ATHSCL HEART DISEASE OF [place] CORONARY ARTERY W/O ANG PCTRS Status: Acute (3) S/P CABG (coronary artery bypass graft) Code(s): Z95.1 - PRESENCE OF AORTOCORONARY BYPASS GRAFT Status: Acute (4) HLD (hyperlipidemia) Code(s): E78.5 - HYPERLIPIDEMIA, UNSPECIFIED Status: Acute - Plan DVT proph w/SCDs Permanent pacemaker today Cont ASA/Statins Cont Lasix/Potassium Cont Cardiac rehab
--- NOTE | 2018-12-17 09:37 | PDOC.CPN ---
- Subjective Date: 12/17/18 Time: 09:35 Interval history: The pt seen and examined. No overnight events. No cardiac complaints. - Objective Allergies/Adverse Reactions: Allergies Allergy/AdvReac Type Severity Reaction Status Date / Time No Known Allergies Allergy Verified 05/31/18 14:15 Visit Medications: Current Medications Acetaminophen (Tylenol) 650 mg PO Q6H PRN PRN Reason: Headache/Fever Or Mild Pain Last Admin: 12/16/18 20:08 Dose: 650 mg Acetaminophen/Codeine Phosphate (Tylenol #3) 2 tab PO Q4H PRN PRN Reason: Moderate Pain (4-6) Last Admin: 12/17/18 07:35 Dose: 2 tab Al Hydroxide/Mg Hydroxide (Maalox) 30 ml PO Q4H PRN PRN Reason: Indigestion Last Admin: 12/14/18 17:20 Dose: 30 ml Albuterol/Ipratropium (Duoneb) 3 ml NEB [id number] PRN PRN Reason: SHORTNESS OF BREATH Aspirin (Aspirin) 325 mg PO DAILY [facility] Last Admin: 12/16/18 13:34 Dose: Not Given Bisacodyl (Dulcolax) 10 mg PO Q12H PRN PRN Reason: Constipation Last Admin: 12/15/18 20:25 Dose: 10 mg Bisacodyl (Dulcolax) 10 mg ND Q12H PRN PRN Reason: Constipation Famotidine (Pepcid) 20 mg PO Q12HR [facility] Last Admin: 12/16/18 20:08 Dose: 20 mg Furosemide (Lasix) 40 mg PO DAILY-AC [facility] Guaifenesin/Dextromethorphan (Robitussin Dm) 15 ml PO Q4H PRN PRN Reason: Cough Hydralazine HCl (Apresoline) 10 mg SLOW IVP Q6H PRN PRN Reason: To Maintain SBP< 140mmHG Ondansetron HCl (Zofran) 4 mg IVP Q6H PRN PRN Reason: Nausea/Vomiting Last Admin: 12/16/18 12:43 Dose: 4 mg Polyethylene Glycol (Miralax) 17 gm PO DAILY [facility] Potassium Chloride (Klor-Con 10) 10 meq PO QAM[facility] Rosuvastatin Calcium (Crestor) 20 mg PO HS [facility] Last Admin: 09/09/19 20:08 Dose: 20 mg Sodium Chloride (Flush - Normal Saline) 10 ml IVF Q12HR [facility]KO[facility] Sodium Chloride (Flush - Normal Saline) 10 ml IVF PRN PRN PRN Reason: Saline Flush Tramadol HCl (Ultram) 50 mg PO Q6H PRN PRN Reason: Mild Pain (1-3) Tramadol HCl (Ultram) 100 mg PO Q6H PRN PRN Reason: Moderate Pain (4-6) Last Admin: 12/15/18 06:23 Dose: 100 mg Vital Signs & Weight: Vital Signs Temp Pulse Pulse Pulse Resp BP BP 12/17/18 08:48 65 66 109/56 L 143/66 H 12/17/18 07:52 99.1 F 60 20 12/17/18 04:34 98.9 F 60 18 BP BP Pulse Ox Pulse Ox Pulse Ox 12/17/18 08:48 93 L 95 12/17/18 07:52 108/61 93 L 12/17/18 04:34 150/73 H 93 L Admit Weight 192 lb 3.889 oz Weight 202 lb 3.2 oz - Quality Measures Condition: Coronary Artery Disease CV meds: Beta Sangeeta: No (bradycardia), Statin: Yes, ASA: Yes - Medication Contraindications No Beta Sangeeta reason: Medical contraindication - Physical Exam General: alert & oriented x3 HEENT: mucus membranes moist Neck: supple neck Cardiac: regular rate and rhythm, S1/S2 Lungs: clear to auscultation, decreased breath sounds Neuro: cranial nerve 2-12 intact Skin: clear Musculoskeletal: decreased range of motion - Labs Result Diagrams: 12/16/18 03:50 12/16/18 03:50 Troponin/CKMB Troponin I Less than 0.010 ng/mL (< 0.028) 12/12/18 07:41 - Telemetry Sinus rhythms and dysrhythmias: other (A paced) - Assessment/Plan Assessment/Plan: 1. CAD with s/p CABG x 5 on 12/13/2018 with HICKS-LAD, Lt radial-Diag, SVG-OM1 and OM2, and Rt PDA. 2. Bradycardia with s/p PM placement on 12/16/2018 - A pacing and V sensing; The site is PYROTECHNICIAN with mild erythema, no drainage; 3. HLD - On Statin MAR reviewed Pt. seen and eval. by me. I agree with the A/P by the INSOLE AND OUTSOLE SPLITTER. His pacer site looks good. Chest clear. RRR. AP/Vs. prob. home tomorrow.
[2018-12-17] MEDS: Famotidine 20 MG TAB PO SCH ×2 (09:53→20:10)
[2018-12-17] MEDS: Aspirin 325 MG TAB PO SCH (09:53)
[2018-12-17] MEDS: Potassium Chloride 10 MEQ TAB PO SCH (09:53)
[2018-12-17] MEDS: Furosemide 40 MG TAB PO SCH (09:54)
[2018-12-17] MEDS: Polyethylene Glycol 3350 17 GM Packet PO SCH (09:54)
--- NOTE | 2018-12-17 12:25 | EKG ---
Test Reason : Blood Pressure : / mmHG Vent. Rate : 066 BPM Atrial Rate : 066 BPM P-R Int : 178 ms QRS Dur : 112 ms QT Int : 420 ms P-R-T Axes : 019 -41 059 degrees QTc Int : 440 ms Electronic atrial pacemaker Left axis deviation PAC's Abnormal ECG When compared with ECG of 13-DEC-2018 13:24, Electronic atrial pacemaker has replaced Electronic ventricular pacemaker Confirmed by DR. My REECE ([id number]) on 12/17/2018 12:25:28 PM Referred By: ROBERT Confirmed By:DR. My REECE
--- NOTE | 2018-12-17 12:51 | CCL ---
DATE OF ADMISSION: 12/11/18 DATE OF PROCEDURE: 12/16/18 INDICATION FOR PROCEDURE: This is a 78-year-old patient with symptomatic bradycardia who was found to have three vessel coronar y artery disease. Underwent bypass surgery and still remained as having symptomatic bradycardia. He w as advised to undergo dual chamber pacemaker insertion. He was taken to the cardiac lab analyst where the procedure was performed today without difficulties or complications. For the procedure he was given 2 mg of IV versed for conscious sedation. Throughout th e procedure he was monitored by an independent observer present for heart rate, blood pressure, O2 sa turation and remained stable throughout the procedure. He underwent implantation of a dual chamber pa cemaker from [employer], an [place] XT dual chamber pacemaker which is MRI compatible. The upper rate wa s sent at 120 and the lower rate was set at 60. There were two screw-in leads placed. One in the atri um and one in the ventricle. There were no difficulties or complications encountered. The full dictat ed note can be found on the chart.
[2018-12-17] MEDS: Ibuprofen 800 MG TAB PO SCH (17:59)
[2018-12-17] MEDS: Rosuvastatin 20 MG TAB PO SCH (20:10)
[2018-12-17] MEDS: Acetaminophen 325 MG TAB PO PRN (20:10)
--- NOTE | 2018-12-17 21:34 | PDOC.HOSPP ---
- Subjective Encounter Date: 12/17/18 Encounter Time: 14:00 Subjective: Patient seen and examined for CAD. No CP. No new complaints. No overnight events - Objective Vital Signs & Weight: Vital Signs (12 hours) Temp Pulse Pulse Pulse Resp BP BP 12/17/18 20:00 98.3 F 77 17 12/17/18 16:03 98.1 F 60 20 12/17/18 13:28 72 70 145/81 H 125/77 12/17/18 12:43 98.0 F 60 18 BP BP Pulse Ox Pulse Ox Pulse Ox 12/17/18 20:00 110/86 94 L 12/17/18 16:03 112/55 L 96 12/17/18 13:28 99 96 12/17/18 12:43 112/65 94 L Weight Admit Weight 192 lb 3.889 oz Weight 202 lb 3.2 oz Most Recent Monitor Data Heart Rate from ECG 65 NIBP 116/64 NIBP BP-Mean 81 Respiration from ECG 22 SpO2 99 I&O: 12/16/18 12/17/18 12/18/18 06:59 06:59 06:59 Intake Total 1950 1420 360 Output Total 703 1075 Balance 1247 345 360 Result Diagrams: 12/16/18 03:50 12/16/18 03:50 EKG Reviewed by me: Yes (Tele paced) Hospitalist ROS - Review of Systems Cardiovascular: denies: chest pain, palpitations, orthopnea, paroxysmal noc. dyspnea, edema, light headedness, other Gastrointestinal: denies: nausea, vomitting, abdominal pain, diarrhea, constipation, melena, hematochezia, other - Medication Medications: Active Medications Generic Name Dose Route Start Last Admin Trade Name Freq PRN Reason Stop Dose Admin Acetaminophen 650 mg 12/13/18 12:47 12/17/18 20:10 Tylenol PO 650 mg Q6H PRN Administration Headache/Fever Or Mild Pain Acetaminophen/Codeine Phosphate 2 tab 12/16/18 16:33 12/17/18 07:35 Tylenol #3 PO 2 tab Q4H PRN Administration Moderate Pain (4-6) Al Hydroxide/Mg Hydroxide 30 ml 12/13/18 12:47 12/14/18 17:20 Maalox PO 30 ml Q4H PRN Administration Indigestion Aspirin 325 mg 12/14/18 09:00 12/17/18 09:53 Aspirin PO 325 mg DAILY [facility] Administration Bisacodyl 10 mg 12/13/18 12:47 12/15/18 20:25 Dulcolax PO 10 mg Q12H PRN Administration Constipation Famotidine 20 mg 12/13/18 21:00 12/17/18 20:10 Pepcid PO 20 mg Q12HR NIKOLE Administration Furosemide 40 mg 12/17/18 07:30 12/17/18 09:54 Lasix PO 40 mg DAILY-AC [facility]KO[facility] Administration Ibuprofen 400 mg 12/17/18 18:00 12/17/18 17:59 Motrin PO 12/19/18 09:00 400 mg Q8H NIKOLE Administration Ondansetron HCl 4 mg 12/13/18 12:47 12/16/18 12:43 Zofran IVP 4 mg Q6H PRN Administration Nausea/Vomiting Polyethylene Glycol 17 gm 12/17/18 09:00 12/17/18 09:54 Miralax PO 17 gm DAILY [facility]KO[facility] Administration Potassium Chloride 10 meq 12/17/18 08:00 12/17/18 09:53 Klor-Con 10 PO 10 meq QAM-WM [facility]KOLE Administration Rosuvastatin Calcium 20 mg 12/12/18 21:00 12/17/18 20:10 Crestor PO 20 mg HS NIKOLE Administration Sodium Chloride 10 ml 12/17/18 09:00 12/17/18 10:07 Flush - Normal Saline IVF 10 ml Q12HR NIKOLE Administration Tramadol HCl 100 mg 12/14/18 09:03 12/15/18 06:23 Ultram PO 100 mg Q6H PRN Administration Moderate Pain (4-6) - Exam General Appearance: NAD Neck: supple, no JVD Heart: RRR, no rubs Respiratory: CTAB, no rales Gastrointestinal: soft, non-tender, normal bowel sounds Extremities: no edema Hosp A/P (1) Symptomatic bradycardia Code(s): R00.1 - BRADYCARDIA, UNSPECIFIED Status: Acute (2) CAD (coronary artery disease) Code(s): I25.10 - ATHSCL HEART DISEASE OF [place] CORONARY ARTERY W/O ANG PCTRS Status: Acute (3) S/P CABG (coronary artery bypass graft) Code(s): Z95.1 - PRESENCE OF AORTOCORONARY BYPASS GRAFT Status: Acute (4) HLD (hyperlipidemia) Code(s): E78.5 - HYPERLIPIDEMIA, UNSPECIFIED Status: Acute (5) S/P cardiac pacemaker procedure Status: Acute - Plan plan discussed w/ family, DVT proph w/SCDs s/p Permanent pacemaker Cont ASA/Statins/Lasix/Potassium Cont Cardiac rehab DC in 24 hr if stable
[2018-12-18] MEDS: Ibuprofen 800 MG TAB PO SCH ×3 (03:38→17:59)
[2018-12-18] MEDS: Furosemide 40 MG TAB PO SCH (08:37)
[2018-12-18] MEDS: Potassium Chloride 10 MEQ TAB PO SCH (08:37)
[2018-12-18] MEDS: Famotidine 20 MG TAB PO SCH ×2 (08:38→21:18)
[2018-12-18] MEDS: Polyethylene Glycol 3350 17 GM Packet PO SCH (08:38)
[2018-12-18] MEDS: Aspirin 325 MG TAB PO SCH (08:38)
--- NOTE | 2018-12-18 11:17 | PDOC.CPN ---
- Subjective Date: 12/18/18 Time: 11:17 Interval history: The pt seen and examined. No overnight events. No cardiac complaints. He has walked 3 times yesterday without any cardiac complaints. - Objective Allergies/Adverse Reactions: Allergies Allergy/AdvReac Type Severity Reaction Status Date / Time No Known Allergies Allergy Verified 05/31/18 14:15 Visit Medications: Current Medications Acetaminophen (Tylenol) 650 mg PO Q6H PRN PRN Reason: Headache/Fever Or Mild Pain Last Admin: 12/17/18 20:10 Dose: 650 mg Acetaminophen/Codeine Phosphate (Tylenol #3) 2 tab PO Q4H PRN PRN Reason: Moderate Pain (4-6) Last Admin: 12/17/18 07:35 Dose: 2 tab Al Hydroxide/Mg Hydroxide (Maalox) 30 ml PO Q4H PRN PRN Reason: Indigestion Last Admin: 12/14/18 17:20 Dose: 30 ml Albuterol/Ipratropium (Duoneb) 3 ml NEB [id number] PRN PRN Reason: SHORTNESS OF BREATH Aspirin (Aspirin) 325 mg PO DAILY [facility] Last Admin: 12/18/18 08:38 Dose: 325 mg Bisacodyl (Dulcolax) 10 mg PO Q12H PRN PRN Reason: Constipation Last Admin: 12/15/18 20:25 Dose: 10 mg Bisacodyl (Dulcolax) 10 mg [place] Q12H PRN PRN Reason: Constipation Famotidine (Pepcid) 20 mg PO Q12HR [facility] Last Admin: 12/18/18 08:38 Dose: 20 mg Furosemide (Lasix) 40 mg PO DAILY[facility] Last Admin: 12/18/18 08:37 Dose: 40 mg Guaifenesin/Dextromethorphan (Robitussin Dm) 15 ml PO Q4H PRN PRN Reason: Cough Hydralazine HCl (Apresoline) 10 mg SLOW IVP Q6H PRN PRN Reason: To Maintain SBP< 140mmHG Ibuprofen (Motrin) 400 mg PO Q8H [facility] Stop: 12/19/18 09:00 Last Admin: 12/18/18 09:43 Dose: 400 mg Ondansetron HCl (Zofran) 4 mg IVP Q6H PRN PRN Reason: Nausea/Vomiting Last Admin: 12/16/18 12:43 Dose: 4 mg Polyethylene Glycol (Miralax) 17 gm PO DAILY [facility] Last Admin: 12/18/18 08:38 Dose: 17 gm Potassium Chloride (Klor-Con 10) 10 meq PO QAM-WM [facility] Last Admin: 12/18/18 08:37 Dose: 10 meq Rosuvastatin Calcium (Crestor) 20 mg PO HS [facility] Last Admin: 12/17/18 20:10 Dose: 20 mg Sodium Chloride (Flush - Normal Saline) 10 ml IVF Q12HR [facility] Last Admin: 12/18/18 08:39 Dose: 10 ml Sodium Chloride (Flush - Normal Saline) 10 ml IVF PRN PRN PRN Reason: Saline Flush Tramadol HCl (Ultram) 50 mg PO Q6H PRN PRN Reason: Mild Pain (1-3) Tramadol HCl (Ultram) 100 mg PO Q6H PRN PRN Reason: Moderate Pain (4-6) Last Admin: 12/15/18 06:23 Dose: 100 mg Vital Signs & Weight: Vital Signs Temp Pulse Pulse Pulse Resp BP BP 12/18/18 09:17 72 56 L 150/80 H 120/70 12/18/18 07:47 99.0 F 56 L 18 12/18/18 03:15 97.6 F 65 21 H BP Pulse Ox Pulse Ox Pulse Ox 12/18/18 09:17 97 98 12/18/18 07:47 110/64 95 12/18/18 03:15 110/66 96 Admit Weight 192 lb 3.889 oz Weight 194 lb 9.6 oz - Quality Measures Condition: Coronary Artery Disease CV meds: Beta Sangeeta: No (bradycardia), Statin: Yes, ASA: Yes - Medication Contraindications No Beta Sangeeta reason: Medical contraindication - Physical Exam General: alert & oriented x3 HEENT: mucus membranes moist Neck: supple neck Cardiac: regular rate and rhythm, S1/S2 Lungs: clear to auscultation, decreased breath sounds Neuro: cranial nerve 2-12 intact Abdomen: unremarkable Skin: clear Musculoskeletal: normal range of motion - Labs Result Diagrams: 12/16/18 03:50 12/16/18 03:50 Troponin/CKMB Troponin I Less than 0.010 ng/mL (< 0.028) 12/12/18 07:41 - Telemetry Sinus rhythms and dysrhythmias: other (SR with A paced) - Assessment/Plan Assessment/Plan: 1. CAD with s/p CABG x 5 on 12/13/2018 with HICKS-LAD, Lt radial-Diag, SVG-OM1 and OM2, and Rt PDA.- stable with Coreg, ASA 325mg, and [id number] qd 2. Bradycardia with s/p [employer] [place] XT dual chamber PM placement on 2018 - A pacing and V sensing; The site is SYED with mild erythema, no drainage; 3. HLD - On Statin MAR reviewed Pt. seen and eval. by me. I agree with the A/P by the GENERATION TECHNOLOGIST. The pacer site looks good. Midline incision post CABGF is dry. Chest clear. RRR.Prob. home tomorrow. fritz
--- NOTE | 2018-12-18 19:25 | PDOC.HOSPP ---
- Subjective Encounter Date: 12/18/18 Encounter Time: 10:30 Subjective: Patient seen and examined for CAD. Feeling better. No CP or SOB. No new complaints. No overnight events - Objective Vital Signs & Weight: Vital Signs (12 hours) Temp Pulse Pulse Pulse Resp BP BP 12/18/18 15:44 99.4 F 60 18 12/18/18 11:17 97.6 F 63 18 12/18/18 09:17 72 56 L 150/80 H 120/70 12/18/18 07:47 99.0 F 56 L 18 BP Pulse Ox Pulse Ox Pulse Ox 12/18/18 15:44 116/69 96 12/18/18 11:17 97/61 97 12/18/18 09:17 97 98 12/18/18 07:47 110/64 95 Weight Admit Weight 192 lb 3.889 oz Weight 194 lb 9.6 oz Most Recent Monitor Data Heart Rate from ECG 65 NIBP 116/64 NIBP BP-Mean 81 Respiration from ECG 22 SpO2 99 I&O: 12/17/18 12/18/18 12/19/18 06:59 06:59 06:59 Intake Total 1420 840 Output Total 1075 1000 Balance 345 -160 Result Diagrams: 12/16/18 03:50 12/16/18 03:50 EKG Reviewed by me: Yes (Tele paced) Hospitalist ROS - Review of Systems Respiratory: denies: cough, dry, shortness of breath, hemoptysis, SOB with excertion, pleuritic pain, sputum, wheezing, other Cardiovascular: denies: chest pain, palpitations, orthopnea, paroxysmal noc. dyspnea, edema, light headedness, other - Medication Medications: Active Medications Generic Name Dose Route Start Last Admin Trade Name Freq PRN Reason Stop Dose Admin Acetaminophen 650 mg 12/13/18 12:47 12/17/18 20:10 Tylenol PO 650 mg Q6H PRN Administration Headache/Fever Or Mild Pain Acetaminophen/Codeine Phosphate 2 tab 12/16/18 16:33 12/17/18 07:35 Tylenol #3 PO 2 tab Q4H PRN Administration Moderate Pain (4-6) Al Hydroxide/Mg Hydroxide 30 ml 12/13/18 12:47 12/14/18 17:20 Maalox PO 30 ml Q4H PRN Administration Indigestion Aspirin 325 mg 12/14/18 09:00 12/18/18 08:38 Aspirin PO 325 mg DAILY NIKOLE Administration Bisacodyl 10 mg 12/13/18 12:47 12/15/18 20:25 Dulcolax PO 10 mg Q12H PRN Administration Constipation Famotidine 20 mg 12/13/18 21:00 12/18/18 08:38 Pepcid PO 20 mg Q12HR NIKOLE Administration Furosemide 40 mg 12/17/18 07:30 12/18/18 08:37 Lasix PO 40 mg DAILY-AC NIKOLE Administration Ibuprofen 400 mg 12/17/18 18:00 12/18/18 17:59 Motrin PO 12/19/18 09:00 400 mg Q8H NIKOLE Administration Ondansetron HCl 4 mg 12/13/18 12:47 12/16/18 12:43 Zofran IVP 4 mg Q6H PRN Administration Nausea/Vomiting Polyethylene Glycol 17 gm 12/17/18 09:00 12/18/18 08:38 Miralax PO 17 gm DAILY NIKOLE Administration Potassium Chloride 10 meq 12/17/18 08:00 12/18/18 08:37 Klor-Con 10 PO 10 meq QAM-WM NIKOLE Administration Rosuvastatin Calcium 20 mg 12/12/18 21:00 12/17/18 20:10 Crestor PO 20 mg HS NIKOLE Administration Sodium Chloride 10 ml 12/17/18 09:00 12/18/18 08:39 Flush - Normal Saline IVF 10 ml Q12HR NIKOLE Administration Tramadol HCl 100 mg 12/14/18 09:03 12/15/18 06:23 Ultram PO 100 mg Q6H PRN Administration Moderate Pain (4-6) - Exam General Appearance: NAD Heart: RRR, no gallops Respiratory: CTAB, no rales Respiratory - other findings: dec AE at bases Gastrointestinal: soft, non-tender, normal bowel sounds Neurological: no new deficit Hosp A/P (1) Symptomatic bradycardia Code(s): R00.1 - BRADYCARDIA, UNSPECIFIED Status: Acute (2) CAD (coronary artery disease) Code(s): I25.10 - ATHSCL HEART DISEASE OF [place] CORONARY ARTERY W/O ANG PCTRS Status: Acute (3) S/P CABG (coronary artery bypass graft) Code(s): Z95.1 - PRESENCE OF AORTOCORONARY BYPASS GRAFT Status: Acute (4) HLD (hyperlipidemia) Code(s): E78.5 - HYPERLIPIDEMIA, UNSPECIFIED Status: Acute (5) S/P cardiac pacemaker procedure Status: Acute - Plan incentive spirometry, DVT proph w/SCDs Cont ASA/Statins Cont gentle diuresis s/p Permanent pacemaker Cont Cardiac rehab DC in AM if stable
[2018-12-18] MEDS: Acetaminophen 325 MG TAB PO PRN (21:18)
[2018-12-18] MEDS: Rosuvastatin 20 MG TAB PO SCH (21:18)
[2018-12-19] MEDS: Ibuprofen 800 MG TAB PO SCH (03:16)
[2018-12-19 04:54] LABS: Anion Gap 12 mmol/L (10-20); BUN (Urea Nitrogen) 17 mg/dL (8.4-25.7); Calc. Creatinine Clearance 104 mL/min (70-130); Calcium 8.2 mg/dL (7.8-10.44); Carbon Dioxide 26 mmol/L (23-31); Chloride 103 mmol/L (98-107); Estimated GFR-MDRD Greater than 90; Glucose 87 mg/dL (83-110); Potassium 3.5 mmol/L (3.5-5.1); Sodium 137 mmol/L (136-145)
[2018-12-19 07:15] VITALS: TEMP 98.8
[2018-12-19] MEDS ORDERED: Carvedilol 3.125 MG TAB PO SCH (08:00)
[2018-12-19] MEDS: Furosemide 40 MG TAB PO SCH (08:22)
[2018-12-19] MEDS: Potassium Chloride 10 MEQ TAB PO SCH (08:23)
[2018-12-19] MEDS: Famotidine 20 MG TAB PO SCH (08:23)
[2018-12-19] MEDS: Aspirin 325 MG TAB PO SCH (08:23)
[2018-12-19] MEDS: Polyethylene Glycol 3350 17 GM Packet PO SCH (08:24)
--- NOTE | 2018-12-19 10:18 | DIS ---
DATE OF ADMISSION: 12/11/2018 DATE OF DISCHARGE: 12/19/2018 The patient was admitted to the hospital with symptomatic bradycardia. He was seen by Dr. Gifford where he underwent stress testing which was abnormal. Cardiac cath then showed severe three-vessel coronary artery disease. He underwent coronary artery bypass grafting to the LAD, diagonal, OM, and right PDA. He received no perioperative transfusion and about 3 days later, had a dual-chamber pacemaker placed. He did well and will be discharged home today on his admitting medicines plus 5 days of Lasix 40 a day and potassium 10 mEq a day as well as a prescription for tramadol. Discharge and followup instructions were given. Job ID: [id number]
--- NOTE | 2018-12-19 11:05 | PDOC.CPN ---
- Subjective Date: 12/19/18 Time: 11:05 Interval history: The pt seen and examined. No overnight events. No cardiac complaints. - Objective Allergies/Adverse Reactions: Allergies Allergy/AdvReac Type Severity Reaction Status Date / Time No Known Allergies Allergy Verified 05/31/18 14:15 Visit Medications: Current Medications Acetaminophen (Tylenol) 650 mg PO Q6H PRN PRN Reason: Headache/Fever Or Mild Pain Last Admin: 12/18/18 21:18 Dose: 650 mg Acetaminophen/Codeine Phosphate (Tylenol #3) 2 tab PO Q4H PRN PRN Reason: Moderate Pain (4-6) Last Admin: 12/17/18 07:35 Dose: 2 tab Al Hydroxide/Mg Hydroxide (Maalox) 30 ml PO Q4H PRN PRN Reason: Indigestion Last Admin: 12/14/18 17:20 Dose: 30 ml Albuterol/Ipratropium (Duoneb) 3 ml NEB [id number] PRN PRN Reason: SHORTNESS OF BREATH Aspirin (Aspirin) 325 mg PO DAILY COUNTS INCLUDE 234 BEDS AT THE [facility] Last Admin: 12/19/18 08:23 Dose: 325 mg Bisacodyl (Dulcolax) 10 mg PO Q12H PRN PRN Reason: Constipation Last Admin: 12/15/18 20:25 Dose: 10 mg Bisacodyl (Dulcolax) 10 mg OR Q12H PRN PRN Reason: Constipation Carvedilol (Coreg) 1.5625 mg PO BID-[facility] Last Admin: 12/19/18 08:24 Dose: 1.5625 mg Famotidine (Pepcid) 20 mg PO Q12HR COUNTS INCLUDE 234 BEDS AT THE [facility] Last Admin: 12/19/18 08:23 Dose: 20 mg Furosemide (Lasix) 40 mg PO DAILY-[facility] Last Admin: 12/19/18 08:22 Dose: 40 mg Guaifenesin/Dextromethorphan (Robitussin Dm) 15 ml PO Q4H PRN PRN Reason: Cough Hydralazine HCl (Apresoline) 10 mg SLOW IVP Q6H PRN PRN Reason: To Maintain SBP< 140mmHG Ondansetron HCl (Zofran) 4 mg IVP Q6H PRN PRN Reason: Nausea/Vomiting Last Admin: 12/16/18 12:43 Dose: 4 mg Polyethylene Glycol (Miralax) 17 gm PO DAILY COUNTS INCLUDE 234 BEDS AT THE [facility] Last Admin: 12/19/18 08:24 Dose: Not Given Potassium Chloride (Klor-Con 10) 10 meq PO QAM-WM COUNTS INCLUDE 234 BEDS AT THE [facility] Last Admin: 12/19/18 08:23 Dose: 10 meq Rosuvastatin Calcium (Crestor) 20 mg PO HS COUNTS INCLUDE 234 BEDS AT THE [facility] Last Admin: 12/18/18 21:18 Dose: 20 mg Sodium Chloride (Flush - Normal Saline) 10 ml IVF Q12HR COUNTS INCLUDE 234 BEDS AT THE [facility] Last Admin: 12/19/18 08:24 Dose: 10 ml Sodium Chloride (Flush - Normal Saline) 10 ml IVF PRN PRN PRN Reason: Saline Flush Tramadol HCl (Ultram) 50 mg PO Q6H PRN PRN Reason: Mild Pain (1-3) Tramadol HCl (Ultram) 100 mg PO Q6H PRN PRN Reason: Moderate Pain (4-6) Last Admin: 12/15/18 06:23 Dose: 100 mg Vital Signs & Weight: Vital Signs Temp Pulse Resp BP BP Pulse Ox 12/19/18 07:11 98.8 F 68 18 110/70 97 12/19/18 07:10 97 12/19/18 03:49 98.0 F 65 18 109/70 95 Admit Weight 192 lb 3.889 oz Weight 194 lb 11.2 oz - Quality Measures Condition: Coronary Artery Disease CV meds: Beta Sangeeta: No (bradycardia), Statin: Yes, ASA: Yes - Medication Contraindications No Beta Sangeeta reason: Medical contraindication - Physical Exam General: alert & oriented x3 Neck: supple neck Cardiac: regular rate and rhythm, S1/S2 Lungs: clear to auscultation Neuro: cranial nerve 2-12 intact Skin: clear Musculoskeletal: normal range of motion - Labs Result Diagrams: 12/16/18 03:50 12/19/18 04:19 Troponin/CKMB Troponin I Less than 0.010 ng/mL (< 0.028) 12/12/18 07:41 - Telemetry Sinus rhythms and dysrhythmias: other (SR A paced) - Assessment/Plan Assessment/Plan: 1. CAD with s/p CABG x 5 on 12/13/2018 with HICKS-LAD, Lt radial-Diag, SVG-OM1 and OM2, and Rt PDA.- stable with Coreg 3.125mg 1/2 tab BID; ASA 325mg, and Crestor 20mg qd 2. Bradycardia with s/p Medtronic Azura XT dual chamber PM placement on 2018 - A pacing and V sensing; The site is CMA OR LPN with mild erythema, no drainage; 3. HLD - On Statin MAR reviewed * From Cardiac standpoint, the pt is stable to d/c home. The pt will f/u with Dr Gifford' office for Hospital and PM site check within 2 wks. * Will start Coreg 3.125mg 1/2 tab BID from today and will increase 1 tab BID if SBP > 120.
[2018-12-19 11:45] VITALS: BP 122/73
--- NOTE | 2018-12-19 16:30 | DIS ---
DATE OF ADMISSION: 12/11/2018 DATE OF DISCHARGE: 12/19/2018 DISCHARGE DISPOSITION: Home. FOLLOWUP: 1. Follow up with primary care physician, Dr. Asif Samayoa in 1 week. 2. Follow up with Dr. Pinto and Cardiology Dr. Gifford as scheduled. 3. Outpatient cardiac rehab has been arranged. DISCHARGE MEDICATIONS: 1. Aspirin 81 mg daily. 2. Pepcid 40 mg daily. 3. Crestor 20 mg q.p.m. 4. Sublingual nitroglycerin as needed. 5. Carvedilol 3.125 mg b.i.d. 6. Lasix 40 mg along with 10 mEq of potassium for next 5 days. 7. Tramadol as needed. INPATIENT DIRECTOR FIXED INCOME: 1. Cardiology, Dr. Gifford. 2. Cardiovascular, Dr. Pinto. INPATIENT PROCEDURES: 1. On December 11, 2018, the patient underwent cardiac catheterization that showed severe 3-vessel coronary artery disease. 2. On December 13, 2018, the patient underwent coronary artery bypass grafting x5. Please refer to the CABG report for details. BRIEF HOSPITAL COURSE: The patient is a 78-year-old male with hypertension, hyperlipidemia, recent positive stress test, scheduled for a cardiac cath next week, presented to the hospital with low heart rate. He felt dizzy as well as lightheaded. Please refer to the history and physical for further details. The patient was admitted to the hospital with a diagnosis of symptomatic bradycardia. The patient was monitored in the intensive care unit. His troponins remained negative. He received 0.5 mg atropine in the emergency room. He was evaluated by Cardiology, who recommended cardiac catheterization due to recent abnormal stress test. He underwent coronary artery bypass grafting due to severe 3-vessel coronary artery disease. Post-CABG, the patient continued to have bradycardia, requiring permanent pacemaker placement. He has been ambulating in the hallway with cardiac rehab. Low-dose carvedilol will be started today. He appears stable for discharge. FINAL DIAGNOSES: 1. Symptomatic bradycardia, status post permanent pacemaker placement. 2. Severe 3-vessel coronary artery disease, status post coronary artery bypass grafting x5. 3. Hypertension. 4. Hyperlipidemia. 5. Obesity with a BMI 30. 6. Mild hyponatremia. PLAN: Plan of care was discussed with the patient in detail. He stated understanding. SIGNIFICANT LABORATORY DATA: Total cholesterol 121 with LDL of 52, triglyceride 93. Troponin were negative. Job ID: [id number]
== END 2018-12-19 11:58 | disposition home or self-care (01) | DRG 234 ==
LOC: ERS 19:34 → CCU 23:27 → 2NO 12-16 21:01
PROVIDERS: ADMIT Hospitalist; ATTEND Hospitalist
PROC: 4A023N7 Measurement of Cardiac Sampling and Pressure, Left Heart, Percutaneous Approach (ICD-10-PCS; 2018-12-12)
PROC: B2151ZZ Fluoroscopy of Left Heart using Low Osmolar Contrast (ICD-10-PCS; 2018-12-12)
PROC: B2111ZZ Fluoroscopy of Multiple Coronary Arteries using Low Osmolar Contrast (ICD-10-PCS; 2018-12-12)
PROC: 0JH606Z Insertion of Pacemaker, Dual Chamber into Chest Subcutaneous Tissue and Fascia, Open Approach (ICD-10-PCS; principal; 2018-12-16)
PROC: 02HK3JZ Insertion of Pacemaker Lead into Right Ventricle, Percutaneous Approach (ICD-10-PCS; 2018-12-16)
PROC: 02H63JZ Insertion of Pacemaker Lead into Right Atrium, Percutaneous Approach (ICD-10-PCS; 2018-12-16)
PROC: 5A1223Z Performance of Cardiac Pacing, Continuous (ICD-10-PCS; 2018-12-16)
PROC: 02100A3 Bypass Coronary Artery, One Artery from Coronary Artery with Autologous Arterial Tissue, Open Approach (ICD-10-PCS; 2018-12-17)
PROC: 02100Z9 Bypass Coronary Artery, One Artery from Left Internal Mammary, Open Approach (ICD-10-PCS; 2018-12-17)
PROC: 0212093 Bypass Coronary Artery, Three Arteries from Coronary Artery with Autologous Venous Tissue, Open Approach (ICD-10-PCS; 2018-12-17)
PROC: 06BQ0ZZ Excision of Left Saphenous Vein, Open Approach (ICD-10-PCS; 2018-12-17)
PROC: 03BC0ZZ Excision of Left Radial Artery, Open Approach (ICD-10-PCS; 2018-12-17)
PROC: 5A1221Z Performance of Cardiac Output, Continuous (ICD-10-PCS; 2018-12-17)
DX: I25.10 Atherosclerotic heart disease of native coronary artery without angina pectoris (principal); E87.1 Hypo-osmolality and hyponatremia; I49.5 Sick sinus syndrome; I44.0 Atrioventricular block, first degree; I44.4 Left anterior fascicular block; I49.3 Ventricular premature depolarization; E78.5 Hyperlipidemia, unspecified; I10 Essential (primary) hypertension; E66.9 Obesity, unspecified; I95.9 Hypotension, unspecified; Z79.82 Long term (current) use of aspirin; Z79.899 Other long term (current) drug therapy; Z68.30 Body mass index [BMI] 30.0-30.9, adult
CPT/HCPCS: 33208; 36415; 36416; 36430; 71045; 80048; 80053; 80061; 82805; 83735; 83880; 84484; 85007; 85025; 85027; 85610; 85730; 86850; 86900; 86901; 93005; 93010; 93458; 93798; 94002; 94760; 96365; 96374; 99152; 99153; C1769; C1785; C1898; J0461; J0690; J1250; J1265; J1580; J1644; J1815; J2001; J2150; J2250; J2270; J2405; J2440; J2704; J2720; J3010; J3370; J3475; J3480; J7050; P9045; Q9967; S0017

== ENCOUNTER 2018-12-24 08:37 | Emergency (ER) | payer MEDICARE, BC ==
[2018-12-24 09:33] LABS: #Basophils 0.1 thou/uL (0.0-0.2); #Eosinphils 0.2 thou/uL (0.0-0.7); #Lymphocytes 1.1 thou/uL (1.20-3.40); #Monocytes 0.9 thou/uL (0.11-0.59); #Neutrophils 5.3 thou/uL (1.40-6.50); %Basophils 0.7 % (0.0-1.0); %Eosinophils 2.2 % (0.0-10.0); %Lymphocytes 14.1 % (21.0-51.0); %Monocytes 12.1 % (0.0-10.0); %Neutrophils 70.9 % (42.0-75.0); Hemoglobin 11.2 g/dL (14.0-18.0); Mean Corpuscular HGB CONC 33.6 g/dL (32.0-36.0); Mean Corpuscular Hemoglobin 30.7 pg (27.0-31.0); Mean Corpuscular Volume 91.4 fL (78.0-98.0); Mean Platelet Volume 8.8 fL (7.4-10.4); Platelet Count 327 thou/uL (130-400); Red Blood Cell (RBC) Count 3.66 mill/uL (4.70-6.10); White Blood Cell (WBC) Count 7.5 thou/uL (4.8-10.8)
--- NOTE | 2018-12-24 09:45 | RAD ---
PA CHEST: Date 12/24/18 HISTORY: Cough. COMPARISON: 12/16/18. FINDINGS: There are bilateral effusions blunting both CP angles. Streaky atelectasis and/or infiltrate in the l eft lung base is again noted. Upper lungs show mild vascular engorgement without overt congestion. Mild cardiomegaly with postop st ernotomy change. Pacemaker leads are unchanged. IMPRESSION: Bilateral effusions. Left basilar atelectasis and infiltrate. POS: OFF
[2018-12-24 09:52] LABS: ALT (SGPT) 22 U/L (8-55); AST (SGOT) 20 U/L (5-34); Albumin 3.8 g/dL (3.4-4.8); Alkaline Phosphatase 64 U/L (40-150); Anion Gap 13 mmol/L (10-20); BUN (Urea Nitrogen) 16 mg/dL (8.4-25.7); Bilirubin, Total 0.7 mg/dL (0.2-1.2); Calc. Creatinine Clearance 0 mL/min (70-130); Calcium 8.8 mg/dL (7.8-10.44); Carbon Dioxide 27 mmol/L (23-31); Chloride 103 mmol/L (98-107); Estimated GFR-MDRD Greater than 90; Globulin 2.2 g/dL (2.4-3.5); Glucose 93 mg/dL (83-110); Potassium 4.2 mmol/L (3.5-5.1); Sodium 139 mmol/L (136-145)
--- NOTE | 2018-12-24 10:57 | CT ---
CTA CHEST WITH CONTRAST: INDICATIONS: Shortness of breath. TECHNIQUE: Multiplanar reconstruction and 3D post processing performed according to pulmonary angio protocol. FINDINGS: The pulmonary arteries show adequate enhancement. There is no evidence of pulmonary embolus identifi ed. The lung olivarez show small to moderate bilateral effusions. Small pericardial effusion. Cardiomegal y with mild vascular congestion. Bibasilar atelectasis due to effusions. IMPRESSION: 1. No evidence of pulmonary embolus. 2. Small to moderate sized bilateral effusions with bibasilar atelectasis. 3. Small pericardial effusion. POS: OFF
--- NOTE | 2018-12-28 12:29 | EKG ---
Test Reason : Blood Pressure : / mmHG Vent. Rate : 064 BPM Atrial Rate : 064 BPM P-R Int : 318 ms QRS Dur : 106 ms QT Int : 464 ms P-R-T Axes : 036 -20 110 degrees QTc Int : 478 ms Atrial-paced rhythm with prolonged AV conduction T wave abnormality, consider anterior ischemia Prolonged QT Abnormal ECG Confirmed by HERBERTH KWOK DO ([id number]), continuity editor KORY BURCH ([id number]) on 12/28/2018 12:29:22 PM Referred By: Confirmed By:HERBERTH KWOK DO
== END 2018-12-24 10:42 | disposition home or self-care (01) ==
LOC: ERS 08:37
DX: J90 Pleural effusion, not elsewhere classified (principal); R09.89 Other specified symptoms and signs involving the circulatory and respiratory systems; Z79.891 Long term (current) use of opiate analgesic; Z79.82 Long term (current) use of aspirin
CPT/HCPCS: 36415; 71045; 71275; 80053; 83880; 84484; 85025; 93005; 94760